=== PATIENT | male | born 1955 | race Caucasian/White ===

== ENCOUNTER → 2017-11-29 00:20 | Outpatient (CLI) | payer BC, SELFPAY ==
--- NOTE | 2017-11-29 08:17 | DI.REPORT_ITS ---
SYMPTOM/DIAGNOSIS: LUMP IN LEFT TESTICLE, N50.9 TESTICULAR ULTRASOUND: The testicles are normal in size and echogenicity and show normal blood flow. No mass is identified. There is small epididymal head cysts bilaterally. A few foci of shadowing are seen in the left testicle consistent with calcifications. There is also a question of scattered echogenic foci in the left epididymis also consistent with tiny calcifications. There is no evidence of hydrocele or varicocele. IMPRESSION: Calcifications in the left testicle and left epididymis. No evidence of a mass.
== END ==
PROVIDERS: PCP Family Medicine; Visit Provider Surgery
DX: N50.3 Cyst of epididymis (principal); N44.2 Benign cyst of testis; N50.89 Other specified disorders of the male genital organs
CPT/HCPCS: 76870

== ENCOUNTER 2019-12-12 07:37 | Outpatient (CLI) | payer BC, SELFPAY ==
[2019-12-14 09:39] LABS: SARS-CoV-2 RNA Undetected (Undetected); SARS-CoV-2 Specimen Source Nasopharynx
== END 2019-12-12 07:57 ==
PROVIDERS: PCP Family Medicine; Visit Provider Family Medicine
DX: Z11.59 Encounter for screening for other viral diseases (principal)
CPT/HCPCS: U0003

== ENCOUNTER 2021-02-17 13:14 | Outpatient (REF) | payer BC, SELFPAY ==
[2021-02-17 16:02] LABS: Bilirubin Negative (Negative); Blood Small (Negative); Clarity Clear (Clear); Glucose Negative (Negative); Ketones Negative (Negative); Leukocyte Esterase Negative (Negative); Nitrite Negative (Negative); Specific Gravity 1.015 (1.005-1.025); Urobilinogen 0.2 EU/dL (Up TO 0.2)
[2021-02-17 16:13] LABS: Bacteria Negative HPF (Negative); C & S Indicated? No; Crystals Negative HPF (Negative); Epithelial Cells Negative HPF (Negative); Mucus Negative (Negative); Other Cells Few Renal (Negative); RBC 20-50 HPF (0-2)
== END 2021-02-17 13:15 | disposition home or self-care (01) ==
LOC: LBN 13:14
PROVIDERS: PCP Family Medicine; Visit Provider Family Medicine
DX: D59.6 Hemoglobinuria due to hemolysis from other external causes (principal)
CPT/HCPCS: 81003; 81015

== ENCOUNTER 2021-03-03 13:19 | Outpatient (REF) | payer BC, SELFPAY ==
[2021-03-03 09:21] LABS: Bilirubin Negative (Negative); Blood Moderate (Negative); Clarity Clear (Clear); Glucose Negative (Negative); Ketones Negative (Negative); Leukocyte Esterase Negative (Negative); Nitrite Negative (Negative); Urobilinogen 0.2 EU/dL (Up TO 0.2)
[2021-03-03 09:27] LABS: Bacteria Negative HPF (Negative); C & S Indicated? No; Casts Negative LPF (Negative); Crystals Negative HPF (Negative); Epithelial Cells Rare HPF (Negative); Mucus Negative (Negative); RBC 20-50 HPF (0-2); WBC 0-2 HPF (0-5)
== END 2021-03-03 13:20 | disposition home or self-care (01) ==
LOC: LBN 13:19
PROVIDERS: PCP Family Medicine; Visit Provider Family Medicine
DX: D59.6 Hemoglobinuria due to hemolysis from other external causes (principal)
CPT/HCPCS: 81003; 81015

== ENCOUNTER 2021-03-12 17:17 | Outpatient (REF) | payer BC, SELFPAY ==
[2021-03-12 23:12] LABS: PSA, Screening 6.2 ng/mL (0.0-4.5)
== END 2021-03-12 17:18 | disposition home or self-care (01) ==
LOC: LBN 17:17
PROVIDERS: PCP Family Medicine; Visit Provider Nurse Practitioner Gerontology
DX: Z12.5 Encounter for screening for malignant neoplasm of prostate (principal)
CPT/HCPCS: 84153

== ENCOUNTER 2021-06-06 03:56 | Outpatient (CLI) | payer BC, SELFPAY ==
[2021-06-06 23:04] LABS: PSA, Diagnostic 5.7 ng/mL (0.0-4.5)
== END 2021-06-06 03:57 | disposition home or self-care (01) ==
LOC: LBO 03:56
PROVIDERS: PCP Family Medicine; Visit Provider Nurse Practitioner Gerontology
DX: R97.20 Elevated prostate specific antigen [PSA] (principal)
CPT/HCPCS: 36415; 84153

== ENCOUNTER 2021-12-10 15:14 | Outpatient (REF) | payer BC, SELFPAY ==
[2021-12-10 10:11] LABS: CREATININE 0.9 mg/dL (0.70-1.30)
== END 2021-12-10 15:15 | disposition home or self-care (01) ==
LOC: LBN 15:14
PROVIDERS: PCP Family Medicine; Visit Provider Nurse Practitioner Gerontology
DX: R31.9 Hematuria, unspecified (principal); R97.20 Elevated prostate specific antigen [PSA]
CPT/HCPCS: 82565

== ENCOUNTER 2021-12-24 04:26 | Outpatient (CLI) | payer BC, SELFPAY | END 2021-12-24 04:27 | disposition home or self-care (01) | LOC: LBO 04:26 | PROVIDERS: Nurse Practitioner Gerontology; PCP Family Medicine; Visit Provider Family Medicine | DX: R97.20 Elevated prostate specific antigen [PSA] (principal) | CPT/HCPCS: 36415; 84153 ==

== ENCOUNTER → 2022-01-08 03:04 | Outpatient (CLI) | payer BC, SELFPAY ==
[2022-01-08] MEDS: Omnipaque 350 MG/ML 500 ML BTL-Imaging package IJ (08:57)
--- NOTE | 2022-01-08 09:15 | DI.CT_ITS ---
Exam(s) CT ABDOMEN PELVIS WO/W EXAM: CT ABDOMEN PELVIS WO/W TECHNIQUE: Imaging Protocol: Axial computed tomography images with coronal and sagittal reformatted images were created and reviewed. Images were performed from the lung bases through the ischial tuberosities before IV contrast and fol lowing IV contrast using a 70 second delay, followed by 7 minutes delayed images. CONTRAST MATERIAL: Intravenous: Omnipaque 350 Contrast volume:100 cc Oral: no COMPARISON: No exams were available for comparison FINDINGS: ABDOMEN: Lung Bases: Normal where visualized. Liver: Normal density. Small cysts right lobe no measurable mass. Gallbladder and biliary tract: No radiodense calculus or dilation. Pancreas: Normal density, no abnormal calcifications or inflammatory process. Spleen: Normal. Kidneys: Normal size, contour and axis. No radiodense stones. Mild hydronephrosis.. Small right heladio al cyst. No suspicious masses seen. Adrenal glands: No masses seen. Lymph nodes: Within normal limits. Abdominal Aorta: Abdominal portion non-dilated. Minimal atherosclerotic changes. Soft tissues: PELVIS: Bladder: The bladder is abnormally distended, up to the level of the umbilicus.. There are multiple abnormal soft tissue density masses along the bladder wall, greater on the left side and inferiorly. The mass in the left side of the bladder measures 3 by 7 by roughly 7 cm. There is no gross evidenc e of invasion through the bladder wall. The masses are near the ureterovesical junctions bilaterall y, greater on the left side, causing mild bilateral hydronephrosis..Two calculi in the dependent port ion of the bladder measuring around 7 millimeters in size. Bowel: No obstruction or bowel wall thickening. Appendix normal. Peritoneal cavity: No ascites, collection or mesenteric inflammatory response. Soft tissues: Bones: Bilateral L5 spondylolysis. No significant spondylolisthesis. Mild degenerative disc changes greatest at L5-S1. Unremarkable for age.. Reproductive organs: Prostate is mildly enlarged. IMPRESSION: Multiple bladder masses, highly suspicious for transitional cell carcinoma. The mass is cause mild hy dronephrosis. No suspicious renal mass. No evidence of metastatic disease. RADIATION DOSE DELIVERED: 2,528.79mGy.cm Total DLP 2,528.79mGy.cm Total DLP 2,528.79mGy.cm Total DLP DATA REPOSITORY: All CT scans at this facility are submitted to the National Radiology Data Registry (NRDR) Dose Index Registry (DIR) with the [employer] (ACR). RADIATION OPTIMIZATION: All CT scans at this facility use at least one of these dose optimization te chniques: automated exposure control; mA and/or kV adjustment per patient size (includes targeted exa ms where dose is matched to clinical indication); or iterative reconstruction.
== END ==
PROVIDERS: PCP Family Medicine; Visit Provider Nurse Practitioner Gerontology
DX: R31.9 Hematuria, unspecified (principal); N32.9 Bladder disorder, unspecified
CPT/HCPCS: 74178

== ENCOUNTER 2022-01-08 11:08 | Inpatient (IN) | payer BC, SELFPAY ==
[2022-01-08] VITALS (16 sets, daily range): BP systolic 87–141; BP diastolic 51–88; PULSE 60–98; RESP 12–21; TEMP 35.7–36.6; TEMPC 36.6; O2SAT 92–100; BMI 26.5
--- NOTE | 2022-01-08 11:05 | HPE_ITS ---
Date of service: 01/08/22 Time of Service: 11:30 Assessment and Plan Assessment and plan (1) Bladder mass: Status: Acute Assessment and plan: We will plan a cystoscopy and TUR Bladder lesions. His ultimate treatment recommendations will depend on his surgical pathology. With the size of his bladder lesions, I would expect that he will need to stay overnight with continuous bladder irrigation. I would expect that he will go home with an indwelling catheter as his initial rescetion will involve the muscularis below his visible tumor. History of Present Illness History of Present Illness Chief Complaint: Bladder masses Narrative: This is a 66-year-old gentleman who is quite active running long distance races. He has seen gross hematuria following completion of these races. At first, the hematuria would bring clear within 24 hours. More recently, it is taking longer and longer for the hematuria to clear. Because of the hematuria, he was evaluated with a CT urogram. The urogram demonstrates multiple filling defects within the bladder. These defects are co nsistent with urothelial cell carcinoma of the bladder. He also has a finding of stones within the bladder. He presents for cystoscopy with transurethral resection of his bladder lesions. He has never been a smoker. 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 Father , stroke Stroke Sister No problems noted. Sister No problems noted. Sister No problems noted. Sister No problems noted. Brother , stomach cancer at age 52. Personal history of malignant neoplasm stomach Brother No problems noted. Brother No problems noted. Brother No problems noted. Brother No problems noted. Brother No problems noted. Brother No problems noted. Brother No problems noted. Social History Smoking/Tobacco Use Status: Never Smoking risk assessment performed?: Yes Alcohol Intake: former Year quit: 2006 Drug use: Never Substance use type: does not use Household members: spouse and children Housing: house Number of Children: 4 current occupation: self employed What type of physical activity do you participate in: weight lifting, running and additional Details: work Frequency: 3-4 times per week Seatbelt use: always Helmet use: Yes Meds Allergies and Home Medications Allergies Allergy/AdvReac Type Severity Reaction Status Date / Time No Known Allergies Allergy Verified 01/08/22 11:34 Home Medications Medication Instructions Recorded Confirmed Type multivitamin (Daily Multi-Vitamin 1 ea PO DAILY 08/24/12 01/08/22 History tablet) varicella-zoster glycoE vacc-AS01B 50 mcg IM ONCE #1 ea 02/04/18 02/10/21 Rx adj(PF) 50 mcg/0.5 mL IM susp, kit (Shingrix (PF)) sildenafil 100 mg tablet (Viagra) 100 mg PO DAILY PRN sexual 02/10/21 01/08/22 Rx activity #10 tab-caps magnesium 250 mg tablet 500 mg PO DAILY 01/08/22 01/08/22 History Exam Const General: cooperative Resp Effort & Inspection: normal respiratory effort Auscultation: clear to auscultation bilaterally Cardio Rate: regular rate Rhythm: regular rhythm GI Palpation: soft and no masses Neuro General: patient alert, patient awake and patient oriented x3
--- NOTE | 2022-01-08 11:34 | W.ANESPRE ---
General Info Date of Service Date Performed: 01/08/22 Height: 5 ft 10.5 in Weight: 85.1 kg Body Mass Index (BMI): 26.5 Surgical Procedure: Operation Date: 01/08/22 12:40 Proposed Procedure Side Surgeon p Cystoscopy/Transurethral Resection Bladder Tumor Ajit Delgado MD Meds Allergies and Home Medications Allergies Allergy/AdvReac Type Severity Reaction Status Date / Time No Known Allergies Allergy Verified 01/08/22 11:34 Home Medication Medication Instructions Recorded multivitamin (Daily Multi-Vitamin 1 ea PO DAILY 08/24/12 tablet) varicella-zoster glycoE vacc-AS01B 50 mcg IM ONCE #1 ea 02/04/18 adj(PF) 50 mcg/0.5 mL IM susp, kit (Shingrix (PF)) sildenafil 100 mg tablet (Viagra) 100 mg PO DAILY PRN sexual 02/10/21 activity #10 tab-caps magnesium 250 mg tablet 500 mg PO DAILY 01/08/22 Current Visit Medications: Current Medications Generic Name Dose Route Start Last Admin Trade Name Freq PRN Reason Stop Dose Admin Sodium Chloride 500 mls @ 0 mls/hr 01/08/22 11:22 Saline 500ml Bag IV PRN PRN As Directed Ringer's Solution 1,000 mls @ 80 mls/hr 01/08/22 11:30 IV INFUSION ZEYNEP Cefazolin Sodium/Dextrose 2 gm in 50 mls @ 100 mls/hr 01/08/22 11:30 Ancef Duplex IVPB PREOP ZEYNEP IV Miscellaneous Supplies 1 each 01/08/22 11:30 Iv Access IV DIRECTED ZEYNEP Sodium Chloride 0 ml 01/08/22 11:22 Normal Saline Flush 10 Ml Syr IVP PRN PRN PFSH Active Problems Active Problems: Problem Status Onset Code Bladder mass N32.89 Elevated PSA R97.20 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.6 Impotence, organic 05/31/12 N52.9 Hyperlipidemia 02/10/98 E78.5 Gastroesophageal reflux disease 09/04/12 K21.9 Benign neoplasm of colon 09/14/12 D12.6 Ascending aortic aneurysm 05/13/15 I71.2 Medical History Active Problem List 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, 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) Ascending aortic aneurysm (Chronic 05/13/15) Medical History Male erectile disorder Surgical History Surgical History Colonoscopy - MAC (~2007) repeated 09/14/12 tubular adenoma Colonoscopy - MAC (11/09/17) repeated 09/14/12 tubular adenoma EGD - MAC (09/14/12) Tobacco Smoking/Tobacco Use Status: Never Alcohol Alcohol Intake: former Year quit: 2006 Substance Use Substance use: Never Substance use type: does not use Vital Signs and Lab Results Vital Signs Most Recent Vital Signs in EMR: Temp Pulse Resp BP Pulse Ox 36.6 C 60 16 141/88 H 98 01/08/22 11:52 01/08/22 11:52 01/08/22 11:52 01/08/22 11:52 01/08/22 11:52 Manually Entered Vital Signs Most Recent Manually Entered Vital Signs: Adult Blood Pressure: 141/88 Heart Rate: 60 Respirations: 16 Oxygen Saturation (%): 98 Temperature (C): 36.6 C Lab Results Blood Type / Crossmatch: No Data to Display Complete Blood Count: No Data to Display Complete Metabolic Panel: Creatinine 0.9 mg/dL (0.70-1.30) 12/10/21 09:10 Estimated GFR/1.73 m2 >= 60.00 (mL/min/1.73m2) 12/10/21 09:10 Liver Function Panel: No Data to Display Coagulation Panel: No Data to Display Cardiac Panel: No Data to Display Arterial Blood Gas: No Data to Display Venous Blood Gas: No Data to Display Pancreas Panel: No Data to Display Thyroid Panel: No Data to Display Infectious Disease: Coronavirus (COVID-19)(PCR) Pending 01/08/22 11:40 Coronavirus 2019 Source Nasal/Nares 01/08/22 11:40 Blood Cultures: No Data to Display Toxicology Panel: No Data to Display Anesthesia Assessment and Plan Anesthesia History Personal History: No History of Anesthesia Complications Family History: No Family History of Anesthesia Complications Exercise Tolerance Exercise Tolerance: Metabolic Equivalents>4 Pertinent Negatives Pertinent Negatives: No Symptoms of GERD, No Major Cardiovascular Symptoms or Complaints and No Major Pulmonary Symptoms or Complaints Cardiac & Pulmonary Exam Cardiac Exam: Normal S1/S2 Heart Sounds Pulmonary Exam: Clear Bilateral Breath Sounds Cardiac and Pulmonary Comment:: Has thoracic aneurysm, per pt last fall measured 4.3cm, on yearly exam schedule Implantable Cardiac Device Does patient have a Pacemaker or an ICD?: No Airway Exam Known Difficult Airway: No Mallampati Class: 2 Mouth Opening: Normal (> 3cm) Thyromental Distance: Greater than 3 cm Neck Range of Motion: Full ROM Neck Circumference: Normal Teeth Condition: Normal Dentition, Removable Dentures/Plates Upper, Removable Dentures/Plates Lower and Edentulous ASA Classification ASA Score: ASA 2 Emergency Case?: No NPO Status NPO Status: NPO Clears >2 hours, Solids >8 hours and NPO Clear Liquids>2 hours Anesthesia Plan Resuscitation Status: Full Code Anesthesia Technique: General Anesthesia Airway Planned: Endotracheal Tube Monitors Used: Standard Monitors
[2022-01-08 11:47] LABS: Source Nasal/Nares
[2022-01-08] MEDS: Lactated Ringers 1,000 ML 80 ML IV ×2 (12:14→14:51)
[2022-01-08] MEDS: ceFAZolin 2 GM/50 ML BAG IVPB (13:04)
[2022-01-08] MEDS: Lidocaine 2% Jelly 6 ML SYR (13:09)
--- NOTE | 2022-01-08 14:34 | BLADDER_PTH ---
PATIENT: Raphael Elena LOC: U#:[id number] AGE/SX: 66/M ROOM: [facility] [place] RE01/08/[address]: Ajit Delgado MD : 1955 BED: A DIS: 01/09/2022 SPEC #: [id number] RECD: 01/08/22 17:36 STATUS: SOUSánchez REQ #: [id number] SERGIO: 01/08/22 14:[address]: Ajit Delgado DEPT: Surgical Specimen RECD BY: Ni Stout ENTERED: 01/08/22 17:36 SP TYPE: Bladder OTHR DR: David Venegas DO Tissues: 1 - BLADDER CURRETTINGS Procedures: GROSS AND MICRO LEVEL 5 Comments: [id number]
[2022-01-08 14:44] LABS: COVID-19 PCR Negative (Negative)
--- NOTE | 2022-01-08 14:56 | ROE_ITS ---
Date of service: 01/08/22 Time of Service: 14:56 Operative Note Operative Note PRE-OP DIAGNOSIS: Bladder masses PROCEDURE: cystoscopy with TUR Bladder Tumor (>5 cm) SURGEON: Ajit Delgado ANESTHESIA TYPE: General LMA/ETT Refer to Anesthesia Record ESTIMATED BLOOD LOSS: 500 PATHOLOGY: other (bladder tumor) COMPLICATIONS: None Patient was transported to: PACU Patient's condition: stable Implants: 24 bulgarian Coude tipped irrigating catheter with 30 cc sterile water in balloon Indications: This is a 66-year-old gentleman who comes in with a history of gross hematuria. His symptoms tend to occur after exercise. He was evaluated with a CT urogram and multiple filling defects were found within the bladder. He presents for cystoscopy with transurethral resection of these lesions. Findings: Multiple large papillary lesions within the bladder. The largest lesion was on the patient's left side and extending from the dome down toward the trigone Procedure Description: Silas was brought to the operating room on 01/08/2022. He was given a dose of preoperative antibiotics. After successful induction of general anesthesia, he was placed in the dorsal lithotomy position. His genitalia and perineum were prepped and draped sterilely. 2% Xylocaine jelly was instilled into the urethra to act as a local anesthetic. A 24 [place] resectoscope sheath was passed through the urethra into the bladder. The urethra was inspected using a visual obturator and 30 degree lens. The pendulous, bulbar and membranous urethra appeared normal with no strictures. The prostatic urethra showed some lateral lobe enlargement but no significant median lobe. The bladder neck was then entered and the bladder mucosa was inspected. There was a small papillary lesion measuring less than 2 cm on the right lateral bladder wall. On the left side, there was a greater than 5 cm lesion that extended from the trigone up to the dome of the bladder. 2 additional smaller papillary lesions were seen on the right side of the dome. The right ureteral orifice was visualized and appeared normal. Initially, the left orifice could not be seen. I then utilized an [employer] resectoscope and bipolar cautery to perform transurethral resection of the visible tumor. All resected tissue was evacuated and sent to pathology for permanent section. Once the resection was completed, I was able to visualize the left ureteral orifice and no blood was seen coming from that side. The resection sites were all cauterized with a ball electrode using bipolar cautery. The bladder was then filled with irrigant and the resectoscope was removed. A 24 [place] hematuria catheter was passed through the urethra into the bladder. The catheter balloon was inflated with 30 cc of sterile water. Continuous bladder irrigation with saline was begun. Hand irrigation of the catheter revealed no residual fragments or blood clots. At the completion of the resection, a bimanual exam revealed no fixation of the bladder to the pelvic sidewall. The patient tolerated the procedure well with no complications.
--- NOTE | 2022-01-08 16:36 | W.ANESPOSTOP ---
Postoperative Evaluation Date, Time and Location Date Performed: 01/08/22 Time Performed: 16:36 Patient Location: Day Surgery Unit Vital Signs Most Recent Imported Vital Signs: Most Recent Vital Signs Temp Pulse Resp BP Pulse Ox 36.1 C L 68 16 91/56 L 99 01/08/22 16:00 01/08/22 16:00 01/08/22 16:00 01/08/22 16:00 01/08/22 16:00 Pain Score Most Recent Pain Score: Most Recent Pain Score Pain Level 0 01/08/22 16:00 Assessment Mental Status: Awake (Alert & Oriented to Patient Baseline) Airway and Respiratory Function: Patent airway with normal (patient baseline) respiratory exam Cardiovascular Function: Hemodynamically Stable Hydration Status: Adequately Hydrated Nausea & Vomiting: No Nausea or Vomiting Pain: Pain is tolerable per patient Peripheral Nerve Block: Patient did not receive a nerve block
--- NOTE | 2022-01-08 16:45 | RT.EKG_ITS ---
APPROVED REPORT Exam: Resting ECG Reason for Exam: near syncope Patient Location: I HR:78 bpm ECG Measurements Heart Rate 78 AXIS MA 171 P 55 QRSd 103 QRS -1 QT 366 T 45 QTc 417 Conclusion Sinus rhythm...normal P axis, V-rate 50- 99
--- NOTE | 2022-01-08 17:00 | MCONE_ITS ---
Date of service: 01/08/22 Time of Service: 17:01 Assessment and Plan Assessment and plan (1) Near syncope: Status: Acute Assessment and plan: In setting of hypotension, post-op pain, hematuria. Checking CBC, BMP, magnesium, troponin, lactate, EKG. Place on telemetry. Bolus 1 L of LR and continue MIVF. (2) Hypotension: Status: Acute Assessment and plan: As above (3) Bladder mass: Status: Acute Assessment and plan: s/p TURBT Defer to urology (4) Ascending aortic aneurysm: Status: Chronic Assessment and plan: The patient is not having symptoms of dissection. F/u as outpatient. Total Critical Care Time 35 minutes. History of Present Illness History of Present Illness Chief Complaint: near syncopal event Narrative: Mr Elena is a 66 year old male with PMHx of bladder mass s/p TURBT today, as well as h/o AAA, GERD, ED, who had an unresponsive or a less responsive episode accompanied by shaking when sitting up at the side of the bed. Rapid response was called. By the time I arrived at the bedside, the patient is laying at about a 30 degree angle and responding to questions. He denies pain, including chest discomfort and does not feel short of breath. His SBP is in the 80s. He is on a CBI with blood in the catheter which is draining well. 1 L of LR was ordered in addition to bloodwork. Dr Delgado came to interrogate the catheter to ensure that it has not clotted off. 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 Father , stroke Stroke Sister No problems noted. Sister No problems noted. Sister No problems noted. Sister No problems noted. Brother , stomach cancer at age 52. Personal history of malignant neoplasm stomach Brother No problems noted. Brother No problems noted. Brother No problems noted. Brother No problems noted. Brother No problems noted. Brother No problems noted. Brother No problems noted. Social History Smoking/Tobacco Use Status: Never Smoking risk assessment performed?: Yes Alcohol Intake: former Year quit: 2006 Drug use: Never Substance use type: does not use Household members: spouse and children Housing: house Number of Children: 4 current occupation: self employed What type of physical activity do you participate in: weight lifting, running and additional Details: work Frequency: 3-4 times per week Seatbelt use: always Helmet use: Yes Exam Narrative Exam Narrative: General: Pleasant tall very pale-appearing male who is responding to questions slowly but appropriately Neurological: A&Ox3, slow to respond, but responding, no focal deficits; no shaking observed Psychiatric: difficulty with a full assessment due to mental status Skin: Pale, intact HEENT: Atraumatic, normocephalic, EOMI, dry MM, pale mucous membranes, no sub mandibular or cervical lymphadenopathy, no goiter or JVD Cardiovascular: RRR, no m/r/g Lungs: CTAB Gastrointestinal: soft, tender in suprapubic area, nondistended Genitourinary: has a three way catheter with CBI; peach colored urine Extremities: no edema BLEs Results Last Vital Signs Temp 35.7 C L 01/08/22 16:36 Pulse 70 01/08/22 16:36 Resp 15 01/08/22 16:36 BP 94/61 L 01/08/22 16:36 Pulse Ox 99 01/08/22 16:36 Labs Labs: Laboratory Results - last 24 hr 01/08/22 11:40 COVID-19 Source Nasal/Nares SARS-CoV-2 (PCR) Negative Imaging Additional studies: EKG ordered, pending
[2022-01-08 17:35] LABS: Abs Immature Grans 0.11 10^3/uL (0.0-0.06); Absolute Monocyte Count 0.31 10^3/uL (0.1-0.8); Basophils % 0.8; Eosinophils % 1.3; HCT 35.3 % (40.0-50.0); HGB 11.3 g/dL (13.5-17.5); Immature Grans % 0.8; Lymphocytes % 19.6; MCH 27.4 pg (27.0-33.0); MCV 86 fL (80-95); MPV 10.5 fL (8.0-11.0); Monocytes % 2.2; Neutrophils % 75.3; Platelet Count 254 10^3/uL (130-400); RBC 4.13 10^6/uL (4.36-5.78); RDW 14.3 % (11.8-14.1); RDW-SD 44.3 fL
[2022-01-08 17:36] LABS: Absolute Basophil Count 0.11 10^3/uL (0.0-0.2); Absolute Eosinophil Count 0.19 10^3/uL (0.0-0.7); Absolute Neutrophil Count 10.77 10^3/uL (1.2-6.7); Lactate 4.1 mmol/L (0.6-1.4)
[2022-01-08 17:53] LABS: Anion Gap 7.5 mmol/L (3-11); BUN 12 mg/dL (7-18); CO2 26.5 mmol/L (21.0-32.0); Calcium 8.4 mg/dL (8.5-10.1); Chloride 107 mmol/L (98-107); Estimated GFR 84.05 (mL/min/1.73m2); Glucose 143 mg/dL (74-106); Magnesium 2.1 mg/dL (1.8-2.4); Potassium 4.4 mmol/L (3.5-5.1); Sodium 141 mmol/L (136-145); Troponin I < 50 ng/L (<or=60)
[2022-01-08] MEDS: Lactated Ringers 1,000 ML 1000 ML IV ×2 (18:42→21:19)
[2022-01-08] MEDS: VANCOMYCIN/WATER (PEG) 1.75 GM/350 ML BAG IVPB (18:43)
[2022-01-08 19:14] LABS: Procalcitonin < 0.1 ng/mL
--- NOTE | 2022-01-08 19:33 | NUR.NOTE ---
1621: Pt arrived to room 207. Hand off recieved from Casandra, PACU/RN. Pt arrived pale, lethargic with cool extremities. Alert and slow to respond, but appropriate with his answers to my questioning. BP 94/61, HR 70, T 35.7, 02 sats 99% RA Three way Landry irrigation in place with dark red urine in Landry bag upon arrival to room.
[2022-01-08] MEDS: traMADol 50 MG TAB PO (20:20)
[2022-01-08] MEDS: Docusate Sodium 100 MG CAP PO (20:21)
[2022-01-08] MEDS: Ketorolac 15 MG/ML VIAL IVP (20:21)
[2022-01-08] MEDS: ceFAZolin 1 GM/50 ML BAG IVPB (21:09)
[2022-01-08] MEDS: Lactated Ringers 1,000 ML 150 ML IV (21:19)
[2022-01-08 21:35] LABS: Bilirubin Small (Negative); Blood Large (Negative); Clarity Turbid (Clear); Glucose Negative (Negative); Ketones Negative (Negative); Leukocyte Esterase Negative (Negative); Nitrite Positive (Negative); Specific Gravity 1.025 (1.005-1.025); Urobilinogen 0.2 EU/dL (Up TO 0.2); pH 5.5 (5-8)
[2022-01-08 21:36] LABS: C & S Indicated? C&S Done As Ordered
[2022-01-08 21:41] LABS: RBC >50 HPF (0-2)
[2022-01-08 23:26] LABS: Lactate 2.4 mmol/L (0.6-1.4)
[2022-01-09] VITALS (15 sets, daily range): BP systolic 103–129; BP diastolic 57–76; PULSE 72–220; RESP 16; TEMP 36.5–37.5; O2SAT 92–98
[2022-01-09] MEDS: Lactated Ringers 1,000 ML 150 ML IV (03:30)
[2022-01-09] MEDS: ceFAZolin 1 GM/50 ML BAG IVPB (03:43)
[2022-01-09] MEDS: VANCOMYCIN/WATER (PEG) 1.25 GM/250 ML BAG IVPB ×2 (04:28→13:21)
[2022-01-09 06:41] LABS: HCT 22.4 % (40.0-50.0); HGB 7.5 g/dL (13.5-17.5)
[2022-01-09 06:59] LABS: Anion Gap 6.3 mmol/L (3-11); BUN 14 mg/dL (7-18); CO2 25.7 mmol/L (21.0-32.0); CREATININE 1.1 mg/dL (0.70-1.30); Calcium 7.7 mg/dL (8.5-10.1); Chloride 107 mmol/L (98-107); Estimated GFR 74.96 (mL/min/1.73m2); Glucose 111 mg/dL (74-106); Potassium 4.4 mmol/L (3.5-5.1); Sodium 139 mmol/L (136-145)
[2022-01-09 07:02] LABS: Lactate 1.7 mmol/L (0.6-1.4)
--- NOTE | 2022-01-09 07:29 | W.PM.PROGNOT ---
Date of Service Date of service: 01/09/22 Time of Service: 07:29 Assessment and Plan Assessment and plan (1) Bladder mass: Status: Acute Assessment and plan: We would continue his bladder irrigation and restart it if the output becomes opaque. I suspect yesterday's hypotension event was related to hypovolemia/acute blood loss from his surgical procedure. His bladder tumor volume was quite large. I was surprised that his immediate postop hemoglobin was over 10, but that may reflect his dehydration status more than his anything We will see what today's lab work looks like, but he might benefit from a transfusion. Now that we are discontinuing his bladder irrigation, we will get him up and walking to see if he has any orthostatic hypotension symptoms. If we are able to keep his bladder irrigation off, he may be able to go home later today. Subjective Subjective Interval history since last seen: The patient developed hypotension after he arrived up to the [facility] unit. We suspected hypovolemia and vasovagal reaction. He has responded to increased fluid replacement and feels much better this morning. He denies any lightheadedness or shortness of breath. He has no chest pain. Exam Narrative Exam Narrative: He is awake and talkative His vital signs are documented elsewhere His bladder output is clear with the bladder irrigation going at a very slow rate He is awake and alert His labs are still pending Objective Last Vital Signs Temp 36.7 C 01/09/22 04:43 Pulse 72 01/09/22 04:43 Resp 16 01/09/22 04:43 BP 103/57 L 01/09/22 04:43 Pulse Ox 92 01/09/22 04:43 Laboratory Results - last 24 hr 01/08/22 01/08/22 01/08/22 11:40 17:20 17:20 WBC RBC Hgb Hct MCV MCH MCHC RDW Plt Count MPV Immature Gran % Neutrophils % Lymphocytes % Monocytes % Eosinophils % Basophils % Nucleated RBC % Absolute Neutrophils Absolute Lymphocytes Absolute Monocytes Absolute Eosinophils Absolute Basophils VBG Lactate 4.1 H* Sodium 141 Potassium 4.4 Chloride 107 Carbon Dioxide 26.5 Anion Gap 7.5 BUN 12 Creatinine 1.0 Est GFR (CKD-EPI 2020) 84.05 Glucose 143 H Calcium 8.4 L Magnesium 2.1 Troponin I < 50 Procalcitonin Urine Color Urine Clarity Urine pH Ur Specific [place] Urine Protein Urine Ketones Urine Blood Urine Nitrite Urine Bilirubin Urine Urobilinogen Ur Leukocyte Esterase Urine RBC Urine WBC Ur Epithelial Cells Urine Crystals Urine Bacteria Urine Mucus Ur Culture Indicated? Urine Glucose COVID-19 Source Nasal/Nares SARS-CoV-2 (PCR) Negative 01/08/22 01/08/22 01/08/22 17:20 17:20 20:30 WBC 14.30 H RBC 4.13 L Hgb 11.3 L Hct 35.3 L MCV 86 MCH 27.4 MCHC 32.0 RDW 14.3 H Plt Count 254 MPV 10.5 Immature Gran % 0.8 Neutrophils % 75.3 Lymphocytes % 19.6 Monocytes % 2.2 Eosinophils % 1.3 Basophils % 0.8 Nucleated RBC % 0.0 Absolute Neutrophils 10.77 H Absolute Lymphocytes 2.80 Absolute Monocytes 0.31 Absolute Eosinophils 0.19 Absolute Basophils 0.11 VBG Lactate 4.0 H* Sodium Potassium Chloride Carbon Dioxide Anion Gap BUN Creatinine Est GFR (CKD-EPI 2020) Glucose Calcium Magnesium Troponin I Procalcitonin < 0.1 Urine Color Urine Clarity Urine pH Ur Specific [place] Urine Protein Urine Ketones Urine Blood Urine Nitrite Urine Bilirubin Urine Urobilinogen Ur Leukocyte Esterase Urine RBC Urine WBC Ur Epithelial Cells Urine Crystals Urine Bacteria Urine Mucus Ur Culture Indicated? Urine Glucose COVID-19 Source SARS-CoV-2 (PCR) 01/08/22 01/08/22 01/09/22 21:00 23:22 05:52 WBC RBC Hgb Hct MCV MCH MCHC RDW Plt Count MPV Immature Gran % Neutrophils % Lymphocytes % Monocytes % Eosinophils % Basophils % Nucleated RBC % Absolute Neutrophils Absolute Lymphocytes Absolute Monocytes Absolute Eosinophils Absolute Basophils VBG Lactate 2.4 H* Sodium 139 Potassium 4.4 Chloride 107 Carbon Dioxide 25.7 Anion Gap 6.3 BUN 14 Creatinine 1.1 Est GFR (CKD-EPI 2020) 74.96 Glucose 111 H Calcium 7.7 L Magnesium Troponin I Procalcitonin Urine Color Brown Urine Clarity Turbid Urine pH 5.5 Ur Specific [place] 1.025 Urine Protein >=300 H Urine Ketones Negative Urine Blood Large H Urine Nitrite Positive H Urine Bilirubin Small H Urine Urobilinogen 0.2 Ur Leukocyte Esterase Negative Urine RBC >50 H Urine WBC Not Applicable Ur Epithelial Cells Not Applicable Urine Crystals Not Applicable Urine Bacteria Not Applicable Urine Mucus Not Applicable Ur Culture Indicated? C&S Done As Ordered Urine Glucose Negative COVID-19 Source SARS-CoV-2 (PCR) 01/09/22 01/09/22 05:52 06:56 WBC RBC Hgb 7.5 L D Hct 22.4 L MCV MCH MCHC RDW Plt Count MPV Immature Gran % Neutrophils % Lymphocytes % Monocytes % Eosinophils % Basophils % Nucleated RBC % Absolute Neutrophils Absolute Lymphocytes Absolute Monocytes Absolute Eosinophils Absolute Basophils VBG Lactate 1.7 H Sodium Potassium Chloride Carbon Dioxide Anion Gap BUN Creatinine Est GFR (CKD-EPI 2020) Glucose Calcium Magnesium Troponin I Procalcitonin Urine Color Urine Clarity Urine pH Ur Specific [place] Urine Protein Urine Ketones Urine Blood Urine Nitrite Urine Bilirubin Urine Urobilinogen Ur Leukocyte Esterase Urine RBC Urine WBC Ur Epithelial Cells Urine Crystals Urine Bacteria Urine Mucus Ur Culture Indicated? Urine Glucose COVID-19 Source SARS-CoV-2 (PCR)
[2022-01-09] MEDS: Docusate Sodium 100 MG CAP PO (08:41)
--- NOTE | 2022-01-09 09:14 | PDOC.CMIN ---
- If Service Date Differs Date of service: 01/09/22 Time of Service: 09:14 Care Management Initial Assess REASON FOR HOSPITALIZATION:: Bladder mass PAST MEDICAL HISTORY/PAST SURGICAL HISTORY:: All Active Problems . Bladder mass (Acute). Elevated PSA (Acute). 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 Viagra effective. Ascending aortic aneurysm (Chronic 05/13/15). Active Problem List . 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 Ascending aortic aneurysm (Chronic 05/13/15). Medical History . Male erectile disorder. Surgical History . Colonoscopy - MAC (~2007). repeated 09/14/12 tubular adenoma. Colonoscopy - MAC (11/09/17). repeated 09/14/12 tubular adenoma. EGD - MAC (09/14/12) PREVIOUS FUNCTIONAL STATUS/SOCIAL/FAMILY SUPPORTS:: Lowell lives at [facility] in the summer and in [place] in the winter with his fiancee Sharona. He has 4 children and Sharona has one. Some of their children live closeby and some are out of state. 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 He is independent at [facility] and does not receive any community services. CURRENT FUNCTIONAL STATUS:: Lowell was sitting up in bed visiting with Sharona when CM met with him. They were both open to conversation and pleasant in interaction. Lowell talked about his love of running and Sharona shared that he runs at least 3 half marathons each year. He verbalized that he is disappointed that he will not be able to run for at least 2 weeks following this surgery. ADVANCE DIRECTIVES:: none on file Has patient been provided with info about the portal/API?: Yes Did the patient sign up for the portal?: Yes (previously) INSURANCE COVERAGE / FINANCIAL ISSUES:: TROY VENEGAS CURRENT HOME/COMMUNITY SERVICES/EQUIPMENT:: none PRIMARY CARE PHYSICIAN:: David Venegas POTENTIAL DISCHARGE NEEDS:: follow up with [facility] and PCP and plan of care PATIENT/FAMILY EDUCATION NEEDS:: Review of discharge instructions, limitations, follow up plan, activity, medications, Ask Me Three TRANSPORTATION:: via private vehicle with family PLAN:: Lowell will likely be discharged home with no new services. He will follow up with his community providers and plan of care and transport with family. CM will offer support to Lowell and his discharge planning needs.
--- NOTE | 2022-01-09 09:45 | RT.EKG_ITS ---
APPROVED REPORT Exam: Resting ECG Reason for Exam: Sinus tach Patient Location: I HR:84 bpm ECG Measurements Heart Rate 84 AXIS IL 176 P 34 QRSd 100 QRS -5 QT 359 T 43 QTc 425 Conclusion Sinus rhythm...normal P axis, V-rate 50- 99 Normal Electrocardiogram
[2022-01-09] MEDS: Normal Saline Flush 10 ML SYR IVP ×2 (12:23→14:37)
[2022-01-09] MEDS: cefTRIAXone 2 GM/50 ML BAG IVPB (12:23)
--- NOTE | 2022-01-09 16:13 | W.PM.DS.N ---
Date of service: 01/09/22 Time of Service: 16:13 DS: Diagnosis Discharge Diagnosis (1) Bladder mass: Status: Acute Discharge Plan Disposition Patient Disposition: HOME Condition: Stable Discharge Details Reason For Visit: Bladder Mass Admit Date/Time: 01/08/22 11:08 Admit Provider: Ajit Delgado Attending Provider: Ajit Delgado Primary Care Provider: David Venegas [facility] Course Hospital Course: The patient was admitted and taken to the operating room on 01/08/2022 where he underwent cystoscopy. We identified a large volume of bladder tumor and he underwent transurethral resection of the visible tumor. Following the procedure, continuous bladder irrigation was maintained. The patient developed hypotension which was felt to be related to dehydration and acute blood loss. His hemoglobin at that point was 11 so he was not transfused right then. He was given IV fluid overnight and his blood pressure improved. His hemoglobin on postoperative day #1 had dropped to 7.5. He was asymptomatic while he was in bed, but when we got him up to ambulate, he became tachycardic but not hypotensive. He responded very nicely to 1 unit of packed red blood cells and is no longer symptomatic. He has not had any additional blood in the urine without bladder irrigation. He is asking to be discharged to home this evening. At the time of discharge, he is able to tolerate oral nutrition and medications. He is not having any pain. The urine in his catheter drainage tubing is transparent. Home Meds and New Rx's Prescriptions: New sulfamethoxazole-trimethoprim [Bactrim DS] 800-160 mg tablet 1 tab PO DAILY Qty: 7 0RF No Action sildenafil [Viagra] 100 mg tablet 100 mg PO DAILY PRN (Reason: sexual activity) Qty: 10 12RF Rx Instructions: as directed for ED Shingrix (PF) 50 mcg/0.5 mL suspension for reconstitution 50 mcg IM ONCE Qty: 1 1RF multivitamin [Daily Multi-Vitamin] 1 EACH tablet 1 ea PO DAILY magnesium 250 mg Tablet 500 mg PO DAILY Discharge Instructions Instructions: Transurethral Prostatectomy (DC) Additional Instructions: Plug to catheter irrigation port. Catheter to leg bag or large drainage bag depending on the patient's activity No lifting over 20 pounds until follow-up visit Please call my office on Wednesday morning to make arrangements to have the Landry catheter removed later in the week. You will also need a follow-up visit in 10 to 14 days to review the surgical pathology. Start over the counter stool softener to prevent constipation Stand Alone Forms: Nursing Discharge Form Referrals: Ajit Delgado MD [ [facility] STAFF PHYSICIAN] - (Please call Wednesday to make follow up appointments) Activity:: No lifting over 20 pounds Equipment/Supplies:: Landry to leg bag Diet:: As Tolerated Discharge Orders Discharge Orders: Discharge Order (Routine); Ordered 01/09/22 Ordered By: Ajit Delgado DS: Summary Time Spent with Patient providing and/or coordinating discharge services: Less than 30 minutes Status at Discharge Functional status at discharge: independent ambulation Overall status at discharge: patient is progressing back to baseline Mental Status: mental status grossly normal Speech and Movement: speech and movement normal Mood: congruent mood Affect: normal affect Exam Narrative Exam Narrative: At the time of discharge, he is awake and alert. He looks comfortable. His vital signs are documented elsewhere His chest wall motion is normal. He is not short of breath at rest. His abdomen is soft with no guarding or rebound tenderness His Landry catheter is draining transparent urine with no bladder irrigation He is awake and alert Psych Mental Status: mental status grossly normal Speech and Movement: speech and movement normal Mood: congruent mood Affect: normal affect DS: Data Vitals/I&O Vitals and I&O: Vital Signs Temperature 36.9 C 01/09/22 15:51 Temperature Source Tympanic 01/09/22 15:51 Pulse 83 01/09/22 15:51 Pulse Rhythm Regular 01/09/22 08:50 Respiratory Rate 16 01/09/22 15:51 Respiratory Effort Non-Labored 01/09/22 08:50 Respiratory Depth Normal 01/09/22 08:50 Respiratory Pattern Normal 01/09/22 08:50 Blood Pressure 117/65 01/09/22 15:51 Pulse Oximetry 97 01/09/22 15:51 Respiratory End-tidal CO2 30 01/08/22 16:00 Oxygen Delivery Method Room Air 01/09/22 15:51 Oxygen Flow Rate 0 01/09/22 15:51 Pain Level 0 01/09/22 09:47 Comment 01/09/22 10:04 Intake & Output 01/08/22 01/09/22 01/09/22 23:59 11:59 23:59 Intake Total 3202.667 / 3202.667 1347.5 / 3137.5 1790 / 3137.5 Output Total 500 / 500 1000 / 2650 1650 / 2650 Balance 2702.667 / 2702.667 347.5 / 487.5 140 / 487.5 Weight 85.1 kg Intake: IV 3202.667 / 3202.667 1227.5 / 2527.5 1300 / 2527.5 Oral 120 / 360 240 / 360 Blood Product 250 / 250 Rbc Leuko Reduced Unit 250 / 250 [id number] Output: Urine 1000 / 2650 1650 / 2650 Estimated Blood Loss 500 / 500 Other: Urine Color [place] Urine Appearance Hematuria Clear Clear Comment three way irrigation nursing assessment on worklist Emesis Description None Voiding Methods Indwelling Catheter Data Completed and Pending Labs on day of discharge: Labs from last 24 hours 01/09/22 01/09/22 01/09/22 10:40 06:56 05:52 WBC RBC Hgb 7.5 L D Hct 22.4 L MCV MCH MCHC RDW Plt Count MPV Immature Gran % Neutrophils % Lymphocytes % Monocytes % Eosinophils % Basophils % Nucleated RBC % Absolute Neutrophils Absolute Lymphocytes Absolute Monocytes Absolute Eosinophils Absolute Basophils VBG Lactate 1.7 H Sodium Potassium Chloride Carbon Dioxide Anion Gap BUN Creatinine Est GFR (CKD-EPI 2020) Glucose Calcium Magnesium Troponin I Procalcitonin Urine Color Urine Clarity Urine pH Ur Specific [place] Urine Protein Urine Ketones Urine Blood Urine Nitrite Urine Bilirubin Urine Urobilinogen Ur Leukocyte Esterase Urine RBC Urine WBC Ur Epithelial Cells Urine Crystals Urine Bacteria Urine Mucus Ur Culture Indicated? Urine Glucose Patient ABO/Rh B Positive Antibody Screen NEGATIVE Crossmatch See Detail 01/09/22 01/08/22 01/08/22 05:52 23:22 21:00 WBC RBC Hgb Hct MCV MCH MCHC RDW Plt Count MPV Immature Gran % Neutrophils % Lymphocytes % Monocytes % Eosinophils % Basophils % Nucleated RBC % Absolute Neutrophils Absolute Lymphocytes Absolute Monocytes Absolute Eosinophils Absolute Basophils VBG Lactate 2.4 H* Sodium 139 Potassium 4.4 Chloride 107 Carbon Dioxide 25.7 Anion Gap 6.3 BUN 14 Creatinine 1.1 Est GFR (CKD-EPI 2020) 74.96 Glucose 111 H Calcium 7.7 L Magnesium Troponin I Procalcitonin Urine Color Brown Urine Clarity Turbid Urine pH 5.5 Ur Specific [place] 1.025 Urine Protein >=300 H Urine Ketones Negative Urine Blood Large H Urine Nitrite Positive H Urine Bilirubin Small H Urine Urobilinogen 0.2 Ur Leukocyte Esterase Negative Urine RBC >50 H Urine WBC Not Applicable Ur Epithelial Cells Not Applicable Urine Crystals Not Applicable Urine Bacteria Not Applicable Urine Mucus Not Applicable Ur Culture Indicated? C&S Done As Ordered Urine Glucose Negative Patient ABO/Rh Antibody Screen Crossmatch 01/08/22 01/08/22 01/08/22 20:30 17:20 17:20 WBC 14.30 H RBC 4.13 L Hgb 11.3 L Hct 35.3 L MCV 86 MCH 27.4 MCHC 32.0 RDW 14.3 H Plt Count 254 MPV 10.5 Immature Gran % 0.8 Neutrophils % 75.3 Lymphocytes % 19.6 Monocytes % 2.2 Eosinophils % 1.3 Basophils % 0.8 Nucleated RBC % 0.0 Absolute Neutrophils 10.77 H Absolute Lymphocytes 2.80 Absolute Monocytes 0.31 Absolute Eosinophils 0.19 Absolute Basophils 0.11 VBG Lactate 4.0 H* Sodium Potassium Chloride Carbon Dioxide Anion Gap BUN Creatinine Est GFR (CKD-EPI 2020) Glucose Calcium Magnesium Troponin I Procalcitonin < 0.1 Urine Color Urine Clarity Urine pH Ur Specific [place]oe Urine Protein Urine Ketones Urine Blood Urine Nitrite Urine Bilirubin Urine Urobilinogen Ur Leukocyte Esterase Urine RBC Urine WBC Ur Epithelial Cells Urine Crystals Urine Bacteria Urine Mucus Ur Culture Indicated? Urine Glucose Patient ABO/Rh Antibody Screen Crossmatch 01/08/22 01/08/22 17:20 17:20 WBC RBC Hgb Hct MCV MCH MCHC RDW Plt Count MPV Immature Gran % Neutrophils % Lymphocytes % Monocytes % Eosinophils % Basophils % Nucleated RBC % Absolute Neutrophils Absolute Lymphocytes Absolute Monocytes Absolute Eosinophils Absolute Basophils VBG Lactate 4.1 H* Sodium 141 Potassium 4.4 Chloride 107 Carbon Dioxide 26.5 Anion Gap 7.5 BUN 12 Creatinine 1.0 Est GFR (CKD-EPI 2020) 84.05 Glucose 143 H Calcium 8.4 L Magnesium 2.1 Troponin I < 50 Procalcitonin Urine Color Urine Clarity Urine pH Ur Specific [place]oe Urine Protein Urine Ketones Urine Blood Urine Nitrite Urine Bilirubin Urine Urobilinogen Ur Leukocyte Esterase Urine RBC Urine WBC Ur Epithelial Cells Urine Crystals Urine Bacteria Urine Mucus Ur Culture Indicated? Urine Glucose Patient ABO/Rh Antibody Screen Crossmatch 01/08/22 21:00 Urine - Cath Landry Indwelling Urine Culture - Pending 01/08/22 20:30 Blood Blood Culture - Pending 01/08/22 20:20 Blood Blood Culture - Pending Preliminary micro results at discharge 01/08/22 21:00 Urine Culture - Pending Urine - Cath Landry Indwelling 01/08/22 20:30 Blood Culture - Pending Blood 01/08/22 20:20 Blood Culture - Pending Blood [facility] All Active Problems (Updated 01/09/22 @ 08:18 by Ajit Delgado MD) Acute blood loss as cause of postoperative anemia (Acute) Hypotension (Acute) Near syncope (Acute) Bladder mass (Acute) Elevated PSA (Acute) 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 Father , stroke Stroke Sister No problems noted. Sister No problems noted. Sister No problems noted. Sister No problems noted. Brother , stomach cancer at age 52. Personal history of malignant neoplasm stomach Brother No problems noted. Brother No problems noted. Brother No problems noted. Brother No problems noted. Brother No problems noted. Brother No problems noted. Brother No problems noted. Social History Smoking/Tobacco Use Status: Never Smoking risk assessment performed?: Yes Alcohol Intake: former Year quit: 2006 Drug use: Never Substance use type: does not use Household members: spouse and children Housing: house Number of Children: 4 current occupation: self employed What type of physical activity do you participate in: weight lifting, running and additional Details: work Frequency: 3-4 times per week Seatbelt use: always Helmet use: Yes
--- NOTE | 2022-01-10 17:03 | PDOC.CMDIS ---
- If Service Date Differs Date of service: 01/09/22 Time of Service: 17:03 LACE Index Scoring Tool - Questions: Length of Stay (in days): 1 Acuity (Admit via E.D.?): No Comorbidities: Any Tumor E.D. Visits: 0 - Answers: Total Score: 3 Risk of Readmission: Low Risk Care Management Discharge Reason for Hospitalization: Bladder mass Discharge Plan: Raphael is discharged home via private vehicle with family. New RX for Bactrim is transmitted to [facility]. Raphael will call Dr. Delgado's office on Wednesday to make follow up appointments. Patient/Family Education Needs: Review discharge instuctions, limitations, medications and plan to follow up with community providers. Review ask me three.
== END 2022-01-09 17:25 | disposition home or self-care (01) | DRG 670 ==
LOC: PDS 15:50 → MS 16:32 → PDS 16:38
PROVIDERS: Family Medicine; Internal Medicine; Admitting Provider Urology; PCP Family Medicine; Visit Provider Urology
PROC: 0TBB8ZZ Excision of Bladder, Via Natural or Artificial Opening Endoscopic (ICD-10-PCS; CPT 52240; principal; 2022-01-08 12:30)
DX: N32.89 Other specified disorders of bladder (principal); R97.20 Elevated prostate specific antigen [PSA]; D59.6 Hemoglobinuria due to hemolysis from other external causes; I71.2 Thoracic aortic aneurysm, without rupture; E78.5 Hyperlipidemia, unspecified; K21.9 Gastro-esophageal reflux disease without esophagitis; E86.0 Dehydration; E86.1 Hypovolemia; I95.81 Postprocedural hypotension; C67.9 Malignant neoplasm of bladder, unspecified
CPT/HCPCS: 52240; 36415; 80048; 84145; 86850; 86900; 86901; 86920; 87040; 87635; 81003; 81015; 83605; 83735; 84484; 85014; 85018; 85025; 87086; 88307; 93005; 93010; 99223; J0690; J1100; J1885; J2405; J2704; P9016

== ENCOUNTER 2022-01-14 15:17 | Outpatient (REF) | payer BC, SELFPAY | END 2022-01-14 15:18 | disposition home or self-care (01) | LOC: LBN 15:17 | PROVIDERS: PCP Family Medicine; Visit Provider Nurse Practitioner Gerontology | DX: N39.0 Urinary tract infection, site not specified (principal) | CPT/HCPCS: 87086 ==

== ENCOUNTER → 2022-02-26 02:33 | Outpatient (CLI) | payer BC, SELFPAY ==
--- NOTE | 2022-02-26 06:45 | DI.RAD_ITS ---
Exam(s) XR HIP RT COMPLETE AP PELVIS EXAM: XR HIP RT COMPLETE AP PELVIS CLINICAL HISTORY: R hip pain,? ARTHRITIS, [id number]. TECHNIQUE: 2D digital imaging was performed of the right hip. Two images were obtained. AP pelvis a nd lateral right hip views were obtained. COMPARISON: No exams were available for comparison FINDINGS: BONES: No acute fracture is present. No bony destructive lesion is seen. JOINTS: No dislocation present. There is mild joint space narrowing and subchondral sclerosis in the right hip. Similar findings are seen in the left hip. There is an acetabular subchondral cyst and m ild acetabular spurring on the left. SOFT TISSUE: Normal. IMPRESSION: Mild degenerative changes of the right hip. DATA REPOSITORY: RADIATION DOSE DELIVERED:
== END ==
PROVIDERS: PCP Family Medicine; Visit Provider Family Medicine
DX: M16.11 Unilateral primary osteoarthritis, right hip (principal)
CPT/HCPCS: 73502

== ENCOUNTER → 2022-04-16 10:17 | Outpatient (BNVA) | payer MEDICARE, BC, SELFPAY | PROVIDERS: PCP Family Medicine; Referring Provider Family Medicine; Visit Provider Nurse Practitioner Gerontology | DX: R33.8 Other retention of urine (principal); C67.9 Malignant neoplasm of bladder, unspecified; N39.0 Urinary tract infection, site not specified | CPT/HCPCS: 51798; 81003; 99214 ==

== ENCOUNTER 2022-04-16 11:47 | Outpatient (REF) | payer MEDICARE, BC, SELFPAY | END 2022-04-16 11:48 | disposition home or self-care (01) | LOC: LBN 11:47 | PROVIDERS: PCP Family Medicine; Visit Provider Nurse Practitioner Gerontology | DX: N39.0 Urinary tract infection, site not specified (principal) | CPT/HCPCS: 87077; 87086; 87186 ==

== ENCOUNTER 2022-08-06 16:47 | Outpatient (REF) | payer MEDICARE, SELFPAY | END 2022-08-06 16:48 | disposition home or self-care (01) | LOC: LBN 16:47 | PROVIDERS: PCP Family Medicine; Visit Provider Urology | DX: C67.9 Malignant neoplasm of bladder, unspecified (principal); R82.998 Other abnormal findings in urine | CPT/HCPCS: 87077; 87086; 87186 ==

== ENCOUNTER 2022-11-06 15:43 | Outpatient (REF) | payer MEDICARE, SELFPAY | END 2022-11-06 15:44 | disposition home or self-care (01) | LOC: LBN 15:43 | PROVIDERS: PCP Family Medicine; Visit Provider Urology | DX: R39.89 Other symptoms and signs involving the genitourinary system (principal) | CPT/HCPCS: 87086 ==

== ENCOUNTER 2022-11-17 17:46 | Emergency (ER) | payer MEDICARE, SELFPAY ==
[2022-11-17] VITALS (7 sets, daily range): BP systolic 106–134; BP diastolic 69–90; PULSE 82–94; RESP 18; TEMP 37–37.6; O2SAT 96
--- NOTE | 2022-11-17 18:15 | DI.RAD_ITS ---
Exam(s) XR PORTABLE CHEST AP EXAM: XR PORTABLE CHEST AP CLINICAL HISTORY: fever, r/o pneumonia. TECHNIQUE: 2D digital imaging was performed. COMPARISON: CT CT ABDOMEN PELVIS WO/W from 01/08/2022 FINDINGS: Single AP portable view. Heart size is upper normal. The mediastinum is not widened. Lungs are clear. No infiltrates nor obvious pleural effusions. Mild elevation of the right hemidiaphragm noted IMPRESSION: No acute pulmonary findings on this single AP portable view of the chest.Mild elevation the right hem idiaphragm. DATA REPOSITORY: RADIATION DOSE DELIVERED:
--- NOTE | 2022-11-17 18:15 | W.ED.GENAD ---
Discharge Plan Disposition Patient Disposition: Home Condition: Good Discharge Details Clinical Impression: Acute UTI Primary Care Provider: David Venegas ED Provider: Elroy Valentine Home Meds and New Rx's Prescriptions: New ciprofloxacin HCl [Cipro] 500 mg tablet 500 mg PO BID Qty: 20 0RF No Action tamsulosin [Flomax] 0.4 mg capsule 0.8 mg PO DAILY Qty: 180 0RF Patient Comments: not taking diphenhydramine-acetaminophen [Tylenol PM Extra Strength] 25-500 mg tablet 2 tab PO .nightly PRN docusate sodium [Colace] 100 mg capsule 100 mg PO BID L.acidoph,saliva-B.bif-S.therm [Acidophilus Probiotic Blend] 175 mg capsule 1 cap PO DAILY sildenafil [Viagra] 100 mg tablet 100 mg PO DAILY PRN (Reason: sexual activity) Qty: 10 12RF Rx Instructions: as directed for ED Shingrix (PF) 50 mcg/0.5 mL suspension for reconstitution 50 mcg IM ONCE Qty: 1 1RF multivitamin [Daily Multi-Vitamin] 1 EACH tablet 1 ea PO DAILY Patient Comments: does not take meloxicam 15 mg tablet 15 mg PO DAILY Qty: 30 0RF Patient Comments: does not take losartan 25 mg tablet 25 mg PO DAILY doxycycline hyclate 100 mg capsule 100 mg PO BID Patient Comments: not taking alfuzosin 10 mg tablet extended release 24 hr 10 mg PO DAILY Patient Comments: Replacing tamsulosin magnesium 250 mg Tablet 500 mg PO DAILY Discharge Instructions Instructions: Urinary Tract Infection in Men (ED) Additional Instructions: At this time unfortunately you do have evidence of urinary tract infection. Looking at your last culture results from [facility] from 10/22/2022 you do have good sensitivities. We will start you on Cipro. Please be cautious with your joints and ligaments. Do not perform any aggressive activity while on this medication. This medication can cause irritation in your tendons, so if you notice any pain please avoid any more activity, stop the medication, and discuss further treatment with your primary care provider. If you notice any worsening of your symptoms, or any new symptoms such as vomiting, diarrhea, fever, chills, shortness of breath, chest pain, numbness, weakness, or fainting , please return immediately to the emergency department for reevaluation. Please follow up with your primary care provider as soon as possible for reassessment and reevaluation. As always, it was a pleasure participating in your medical care today. Referrals: David Venegas DO [Primary Care Provider] - Medical Decision Making 67-year-old male with a past medical history of ascending aortic aneurysm, bladder cancer, prostate enlargement, previous prostatic biopsy, who normally self catheterizes. Patient presents today with his for evaluation of fever. Patient states that about 2 and half weeks ago he was diagnosed with urinary tract infection with enteric coccus, faecalis which was pansensitive. He was treated with Macrobid for 2 weeks, and finished about a week ago. The patient had been doing well however over the last 2 to 3 days he began developing some frequency and urgency with urination. Patient then developed a fever today with a Tmax of 102. He denies any cough, chest pain, shortness of breath or abdominal pain. He denies any neck pain. No other complaints at this time. He is not currently on chemotherapy or radiation. Exam demonstrates well-appearing male, no nuchal rigidity, clear lung sounds. No suprapubic tenderness. Differential is highest for UTI. Will evaluate for this as well as other potential infectious etiologies, get blood cultures,, monitor closely and reassess. 7:55 PM Laboratory work-up shows evidence of UTI on urinalysis. WBC count is normal, no bandemia or left shift. Electrolytes stable, renal function stable. Chest x-ray negative for acute process. Patient otherwise feels well. Blood cultures have been sent. No evidence of significant tachycardia or hypotension suggestive of sepsis. Patient otherwise looks well. Patient stable for discharge. We did review previous cultures and he did have sensitivities to Cipro. We will use Cipro at this time. I did discuss with the patient the importance of caution against any vigorous activities that could result in tendon irritation as well as the potential side effects for Cipro. Discussed red flags for which to return. I have extensively reviewed the treatment plan and discharge instructions with the patient. I have addressed all patient concerns at this time. The patient was made aware of what symptoms to monitor for that would warrant a return to the emergency department. Discussed the plan with the patient, they demonstrate verbal understanding and agreement with our assessment and plan at this time. The documentation in this chart was dictated using [employer] dictation software. Please excuse any dictation errors. FINDINGS: Limitations: The extreme lung apices and upper ribs are partially excluded from view and cannot be evaluated. Lungs: Within the limits of the exam, no pulmonary consolidation is seen. Pleural spaces: No pleural effusion or pneumothorax is demonstrated. Heart/Mediastinum: Heart size is normal. Diaphragm: There is elevation of the right hemidiaphragm, also seen on the comparison CT exam. Bones/joints: The visualized bony structures appear grossly intact, as seen. IMPRESSION: Upper ribs and extreme lung apices partially excluded from view and not evaluated. Otherwise, no active disease seen in the chest. Thank you for allowing us to participate in the care of your patient. Dictated and Authenticated by: Davin Wagner MD 11/17/2022 7:47 PM Eastern Time ([place] & [place]) HPI General Date/Time Provider Initiated Documentation: 11/17/22 18:03. HPI Narrative: 67-year-old male with a past medical history of ascending aortic aneurysm, bladder cancer, prostate enlargement, previous prostatic biopsy, who normally self catheterizes. Patient presents today with his for evaluation of fever. Patient states that about 2 and half weeks ago he was diagnosed with urinary tract infection with enteric coccus, faecalis which was pansensitive. He was treated with Macrobid for 2 weeks, and finished about a week ago. The patient had been doing well however over the last 2 to 3 days he began developing some frequency and urgency with urination. Patient then developed a fever today with a Tmax of 102. He denies any cough, chest pain, shortness of breath or abdominal pain. He denies any neck pain. No other complaints at this time. He is not currently on chemotherapy or radiation. Related Data Home Medications Medication Instructions Recorded Confirmed multivitamin (Daily Multi-Vitamin 1 ea PO DAILY 08/24/12 03/11/22 tablet) varicella-zoster glycoE vacc-AS01B 50 mcg IM ONCE #1 ea 02/04/18 03/11/22 adj(PF) 50 mcg/0.5 mL IM susp, kit (Shingrix (PF)) magnesium 250 mg tablet 500 mg PO DAILY 01/08/22 11/17/22 L.acidophil,salivari-Bifido 1 cap PO DAILY 02/24/22 03/11/22 bifidum-Strep thermoph 175 mg capsule (Acidophilus Probiotic Blend) diphenhydramine 25 2 tab PO .nightly PRN 02/24/22 11/17/22 mg-acetaminophen 500 mg tablet (Tylenol PM Extra Strength) docusate sodium 100 mg capsule 100 mg PO BID 02/24/22 11/17/22 (Colace) sildenafil 100 mg tablet (Viagra) 100 mg PO DAILY PRN sexual 02/24/22 11/17/22 activity #10 tab-caps tamsulosin 0.4 mg capsule (Flomax) 0.8 mg PO DAILY #180 caps 03/11/22 03/11/22 meloxicam 15 mg tablet 15 mg PO DAILY #30 tabs 03/17/22 losartan 25 mg tablet 25 mg PO DAILY 05/06/22 11/17/22 doxycycline hyclate 100 mg capsule 100 mg PO BID 06/15/22 alfuzosin 10 mg tablet,extended 10 mg PO DAILY Elevated PSA 08/07/22 11/17/22 release 24 hr ciprofloxacin HCl 500 mg tablet 500 mg PO BID #20 tabs 11/17/22 (Cipro) Previous Rx's Medication Instructions Recorded varicella-zoster glycoE vacc-AS01B 50 mcg IM ONCE #1 ea 02/04/18 adj(PF) 50 mcg/0.5 mL IM susp, kit (Shingrix (PF)) sildenafil 100 mg tablet (Viagra) 100 mg PO DAILY PRN sexual 02/24/22 activity #10 tab-caps tamsulosin 0.4 mg capsule (Flomax) 0.8 mg PO DAILY #180 caps 03/11/22 meloxicam 15 mg tablet 15 mg PO DAILY #30 tabs 03/17/22 ciprofloxacin HCl 500 mg tablet 500 mg PO BID #20 tabs 11/17/22 (Cipro) Allergies Allergy/AdvReac Type Severity Reaction Status Date / Time No Known Allergies Allergy Verified 11/17/22 17:54 General Stated Complaint: Fever LIDIA: 3 Review of Systems All systems reviewed & are unremarkable except as noted in HPI and below PFSH All Active Problems (Updated 11/17/22 @ 19:52 by Elroy Valentine DO) Acute UTI (Acute) Urinary retention (Acute) EIC (epidermal inclusion cyst) (Acute ~06/11/22) Trochanteric bursitis of right hip (Acute ~05/12/22) Aneurysm (Acute ~04/2022) 05/01/22 Cardiology Malignant neoplasm of overlapping sites of bladder (Acute) Incomplete bladder emptying (Acute) Osteoarthritis of right hip (Acute) Urothelial carcinoma of bladder (Acute) Acute blood loss as cause of postoperative anemia (Acute) Elevated PSA (Acute) 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 Father , stroke Stroke Sister No problems noted. Sister No problems noted. Sister No problems noted. Sister No problems noted. Brother , stomach cancer at age 52. Personal history of malignant neoplasm stomach Brother No problems noted. Brother No problems noted. Brother No problems noted. Brother No problems noted. Brother No problems noted. Brother No problems noted. Brother No problems noted. Social History Smoking/Tobacco Use Status: Never Smoking risk assessment performed?: Yes Alcohol Intake: former Year quit: 2006 Drug use: Never Substance use type: does not use Household members: spouse and children Housing: house Number of Children: 4 current occupation: self employed What type of physical activity do you participate in: weight lifting, running and additional Details: work Frequency: 3-4 times per week Seatbelt use: always Helmet use: Yes Exam Narrative Exam Narrative: 1.Const: Well-nourished, Well-developed, appearing stated age 2.Eyes: PERRL, no conjunctival injection, and symmetrical lids. 3.ENT: Atraumatic external nose and ears. Moist MM. Neck: Symmetric, trachea midline, No thyromegaly. 4.CVS: +S1/S2, No murmurs or gallops. Peripheral pulses 2+ and equal in all extremities. Brisk capillary refill in all extremities. 5.RESP: Unlabored respiratory effort. Clear to auscultation bilaterally. No wheezes rales or rhonchi 6.GI: Soft, Nontender/Nondistended, No hepatosplenomegaly. No guarding or rebound. 7.MSK: Normocephalic/Atraumatic, Extremities w/o deformity or ttp No cyanosis or clubbing, Normal movement of all extremities 8.Skin: Warm, Dry. No rashes or lesions. 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 Sensation grossly intact, no focal neurologic deficits. 10.Psych: (AAO) x3. Appropriate mood and affect Course Vital Signs Vital signs: Vital Signs Temperature 37.6 C 11/17/22 17:50 Pulse 94 H 11/17/22 17:50 Respiratory Rate 18 11/17/22 17:50 Blood Pressure 126/69 11/17/22 17:50 Pulse Oximetry 96 11/17/22 17:50 Temperature 37.6 C 11/17/22 17:50 Temperature Source Temporal Artery Scan 11/17/22 17:50 Pulse 94 H 11/17/22 17:50 Respiratory Rate 18 11/17/22 17:50 Respiratory Effort Normal, Non-Labored 11/17/22 17:58 Blood Pressure 126/69 11/17/22 17:50 Blood Pressure Position Sitting 11/17/22 17:50 Pulse Oximetry 96 11/17/22 17:50 Oxygen Delivery Method Room Air 11/17/22 17:50 Oxygen Flow Rate 0 11/17/22 17:50 Lab/Test Results Lab/Test Results: 11/17/22 18:13 Blood Blood Culture - Pending 11/17/22 18:13 Blood Blood Culture - Pending
[2022-11-17 18:37] LABS: Lactate 0.8 mmol/L (0.6-1.4)
[2022-11-17 18:39] LABS: Abs Immature Grans 0.02 10^3/uL (0.0-0.06); Absolute Basophil Count 0.07 10^3/uL (0.0-0.2); Absolute Lymphocyte Count 1.05 10^3/uL (1.2-3.4); Absolute Monocyte Count 0.94 10^3/uL (0.1-0.8); Absolute Neutrophil Count 4.63 10^3/uL (1.2-6.7); Eosinophils % 1.5; HCT 38.5 % (40.0-50.0); HGB 12.6 g/dL (13.5-17.5); Immature Grans % 0.3; Lymphocytes % 15.4; MCH 26.6 pg (27.0-33.0); MCHC 32.7 % (32.0-36.0); MCV 81 fL (80-95); Monocytes % 13.8; Platelet Count 179 10^3/uL (130-400); RBC 4.73 10^6/uL (4.36-5.78); RDW 14.8 % (11.8-14.1); RDW-SD 44.2 fL; WBC 6.81 10^3/uL (4.4-10.8)
--- NOTE | 2022-11-17 18:42 | NUR.NOTE ---
Nursing Note: Patient self caths with a 12Fr coude cath per patient and confirmed by female visitor present in room; called dry house worker to assist in locating a 12Fr coude as that is not a size the ER stocks.
[2022-11-17 18:54] LABS: ALT 28 U/L (16-63); AST 24 U/L (15-37); Albumin 3.6 g/dL (3.4-5.0); Alkaline Phosphatase 53 U/L (46-116); Anion Gap 8.4 mmol/L (3-11); BUN 10 mg/dL (7-18); Bilirubin, Total 0.4 mg/dL (0.2-1.0); CO2 25.6 mmol/L (21.0-32.0); Calcium 8.5 mg/dL (8.5-10.1); Chloride 100 mmol/L (98-107); Estimated GFR 83.52 (mL/min/1.73m2); Glucose 109 mg/dL (74-106); Sodium 134 mmol/L (136-145); Total Protein 7.1 g/dL (6.4-8.2)
[2022-11-17 19:39] LABS: Bilirubin Negative (Negative); Blood Moderate (Negative); Clarity Clear (Clear); Glucose Negative (Negative); Ketones Negative (Negative); Leukocyte Esterase Large (Negative); Nitrite Negative (Negative); Urobilinogen 0.2 mg/dL (Up to 0.2)
--- NOTE | 2022-11-17 19:48 | DI.VRAD_ITS ---
PROCEDURE INFORMATION: Exam: XR Chest Exam date and time: 11/17/2022 7:07 PM Age: 67 years old Clinical indication: Fever TECHNIQUE: Imaging protocol: Radiologic exam of the chest. Views: 1 view. COMPARISON: CT ABDOMEN PELVIS WO/W 01/08/2022 8:49 AM FINDINGS: Limitations: The extreme lung apices and upper ribs are partially excluded from view and cannot be evaluated. Lungs: Within the limits of the exam, no pulmonary consolidation is seen. Pleural spaces: No pleural effusion or pneumothorax is demonstrated. Heart/Mediastinum: Heart size is normal. Diaphragm: There is elevation of the right hemidiaphragm, also seen on the comparison CT exam. Bones/joints: The visualized bony structures appear grossly intact, as seen. IMPRESSION: Upper ribs and extreme lung apices partially excluded from view and not evaluated. Otherwise, no active disease seen in the chest. Dictated and Authenticated by: Davin Wagner MD. Ordering:MARIZA Abbasi MD
[2022-11-17 19:49] LABS: Bacteria Moderate HPF (Negative); C & S Indicated? C&S Done As Ordered; Casts Negative LPF (Negative); Crystals Negative HPF (Negative); Epithelial Cells Rare HPF (Negative); Mucus Negative (Negative); Other Cells Rare Transitional (Negative); WBC 20-50 HPF (0-5)
[2022-11-17] MEDS: CIPROFLOXACIN 400 MG/200 ML BAG 200 MG IVPB (20:11)
== END 2022-11-17 21:45 | disposition home or self-care (01) ==
PROVIDERS: Emergency Provider Student in an Organized Health Care Education/Training Program; PCP Family Medicine
DX: N39.0 Urinary tract infection, site not specified (principal); N40.0 Benign prostatic hyperplasia without lower urinary tract symptoms; Z85.51 Personal history of malignant neoplasm of bladder
CPT/HCPCS: 80053; 87040; 87077; 96365; 99283; 71045; 81003; 81015; 83605; 85025; 87086; 87186; J0744

== ENCOUNTER 2022-12-07 12:28 | Emergency (ER) | payer MEDICARE, SELFPAY ==
[2022-12-07 12:40] VITALS: BP 123/80; PULSE 67; RESP 20; TEMP 37.1; O2SAT 99
[2022-12-07 13:49] LABS: Bilirubin Negative (Negative); Blood Negative (Negative); Clarity Clear (Clear); Glucose Negative (Negative); Ketones Negative (Negative); Leukocyte Esterase Trace (Negative); Nitrite Negative (Negative); Specific Gravity 1.015 (1.005-1.025); Urobilinogen 0.2 mg/dL (Up to 0.2); pH 7.5 (5-8)
[2022-12-07 13:54] LABS: Abs Immature Grans 0.04 10^3/uL (0.0-0.06); Absolute Basophil Count 0.11 10^3/uL (0.0-0.2); Absolute Eosinophil Count 0.38 10^3/uL (0.0-0.7); Absolute Lymphocyte Count 2.34 10^3/uL (1.2-3.4); Absolute Monocyte Count 0.53 10^3/uL (0.1-0.8); Absolute Neutrophil Count 1.77 10^3/uL (1.2-6.7); Basophils % 2.1; Eosinophils % 7.4; HCT 43.1 % (40.0-50.0); HGB 13.8 g/dL (13.5-17.5); Immature Grans % 0.8; Lymphocytes % 45.3; MCH 26.6 pg (27.0-33.0); MCV 83 fL (80-95); MPV 8.8 fL (8.0-11.0); Monocytes % 10.3; Neutrophils % 34.1; Platelet Count 269 10^3/uL (130-400); RBC 5.18 10^6/uL (4.36-5.78); RDW 14.7 % (11.8-14.1); RDW-SD 45.1 fL; WBC 5.17 10^3/uL (4.4-10.8)
[2022-12-07 13:56] LABS: Bacteria Negative HPF (Negative); C & S Indicated? Yes; Casts Negative LPF (Negative); Crystals Negative HPF (Negative); Epithelial Cells Rare HPF (Negative); Mucus Negative (Negative); RBC Negative HPF (0-2); WBC 0-2 HPF (0-5)
[2022-12-07 14:00] LABS: Lactate 1.5 mmol/L (0.6-1.4)
--- NOTE | 2022-12-07 14:15 | NUR.NOTE ---
Nursing Note: The patient aggressively demanded that his IV be removed because he was leaving. Tati RN just about to draw 2nd set of blood cultures. Patient left prior to them being obtained. The patient stated he had things to do and would not be staying any longer. Informed patient we did not have all results back and that in leaving he would assume all risks associated with signing out AGAINST MEDICAL ADVICE. IV was removed intact, bandage applied, patient walked out to ED lobby and presumably left [facility] premises.
[2022-12-07 14:18] LABS: ALT 30 U/L (16-63); AST 22 U/L (15-37); Alkaline Phosphatase 59 U/L (46-116); Anion Gap 7.1 mmol/L (3-11); BUN 8 mg/dL (7-18); Bilirubin, Total 0.4 mg/dL (0.2-1.0); CO2 29.9 mmol/L (21.0-32.0); CREATININE 0.9 mg/dL (0.70-1.30); Calcium 9.3 mg/dL (8.5-10.1); Chloride 104 mmol/L (98-107); Estimated GFR 94.78 (mL/min/1.73m2); Glucose 85 mg/dL (74-106); Potassium 3.9 mmol/L (3.5-5.1); Sodium 141 mmol/L (136-145); Total Protein 7.8 g/dL (6.4-8.2)
--- NOTE | 2022-12-07 14:25 | W.EDPROG ---
Date of service: 12/07/22 Time of Service: 14:28 Medical Decision Making I called this patient earlier today and asked him to return for a positive set of blood cultures, he did return to the emergency department and while the patient was in the waiting room I placed laboratory orders for assessment Prior to patient being placed in a room and my evaluation, patient eloped and was not assessed by me during this visit aside from diagnostic blood work, pending blood cultures, reportedly received only 1 set, lactate is noted to be slightly elevated at 1.5 Diagnostic vitals stable, ambulatory into emergency department, no leukocytosis I was not able to discuss the results with patient as he eloped prior to assessment patient was reportedly alert and oriented during his triage assessment and of decisional capacity Discharge Plan Discharge Details Chief Complaint: Recheck Primary Care Provider: David Venegas ED Provider: Ni Mejia Home Meds and New Rx's Prescriptions: No Action tamsulosin [Flomax] 0.4 mg capsule 0.8 mg PO DAILY Qty: 180 0RF Patient Comments: not taking diphenhydramine-acetaminophen [Tylenol PM Extra Strength] 25-500 mg tablet 2 tab PO .nightly PRN docusate sodium [Colace] 100 mg capsule 100 mg PO BID L.acidoph,saliva-B.bif-S.therm [Acidophilus Probiotic Blend] 175 mg capsule 1 cap PO DAILY sildenafil [Viagra] 100 mg tablet 100 mg PO DAILY PRN (Reason: sexual activity) Qty: 10 12RF Rx Instructions: as directed for ED Shingrix (PF) 50 mcg/0.5 mL suspension for reconstitution 50 mcg IM ONCE Qty: 1 1RF multivitamin [Daily Multi-Vitamin] 1 EACH tablet 1 ea PO DAILY Patient Comments: does not take meloxicam 15 mg tablet 15 mg PO DAILY Qty: 30 0RF Patient Comments: does not take losartan 25 mg tablet 25 mg PO DAILY doxycycline hyclate 100 mg capsule 100 mg PO BID Patient Comments: not taking alfuzosin 10 mg tablet extended release 24 hr 10 mg PO DAILY Patient Comments: Replacing tamsulosin magnesium 250 mg Tablet 500 mg PO DAILY
[2022-12-07 14:30] LABS: Procalcitonin < 0.1 ng/mL
== END 2022-12-07 14:16 | disposition left against medical advice (07) ==
PROVIDERS: Emergency Provider Physician Assistant; PCP Family Medicine
DX: Z53.21 Procedure and treatment not carried out due to patient leaving prior to being seen by health care provider (principal)
CPT/HCPCS: 80053; 84145; 87040; 87077; 81003; 81015; 83605; 85025; 87086

== ENCOUNTER 2023-01-02 11:00 | Emergency (ER) | payer MEDICARE, SELFPAY ==
[2023-01-02 11:01] VITALS: BP 139/77; PULSE 79; RESP 16; TEMP 36.8; O2SAT 98
--- NOTE | 2023-01-02 11:17 | W.ED.GENAD ---
Discharge Plan Disposition Patient Disposition: Home Condition: Stable Discharge Details Clinical Impression: Fever, Urinary tract infection Primary Care Provider: David Venegas ED Provider: Koffi Wong Home Meds and New Rx's Prescriptions: New cephalexin 500 mg tablet 500 mg PO QID Qty: 28 0RF Continued diphenhydramine-acetaminophen [Tylenol PM Extra Strength] 25-500 mg tablet 2 tab PO .nightly PRN docusate sodium [Colace] 100 mg capsule 100 mg PO BID L.acidoph,saliva-B.bif-S.therm [Acidophilus Probiotic Blend] 175 mg capsule 1 cap PO DAILY sildenafil [Viagra] 100 mg tablet 100 mg PO DAILY PRN (Reason: sexual activity) Qty: 10 12RF Rx Instructions: as directed for ED Shingrix (PF) 50 mcg/0.5 mL suspension for reconstitution 50 mcg IM ONCE Qty: 1 1RF losartan 25 mg tablet 25 mg PO DAILY alfuzosin 10 mg tablet extended release 24 hr 10 mg PO DAILY Patient Comments: Replacing tamsulosin magnesium 250 mg Tablet 500 mg PO DAILY Discontinued multivitamin [Daily Multi-Vitamin] 1 EACH tablet 1 ea PO DAILY Patient Comments: does not take meloxicam 15 mg tablet 15 mg PO DAILY Qty: 30 0RF Patient Comments: does not take Medical Decision Making 67 yo male with hx of bladder cancer, prostate enlargement, previous prostatic biopsy, who normally self catheterizes 5 or more times a day, comes in with cc of fever last night. HE states during the day yesterday he felt well and then in the night had chills and checked his temp and it was 103. He has been afebrile this morning and feels well. HE denies cough, dyspnea, headaches, neck stiffness, chest pain, abdomen pain. HE has noticed some increased need to self cath the last day. He appears well on exam, caox4 speaking clearly and is afebrile. Unclear cause for his fever last night, will check cbc, cmp, procalcitonin, ua. HE has no murmurs or skin lesions to suggest endocarditis. No respiratory symptoms so do not feel xray indicated. 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 Lab Data Lab results reviewed: Yes I reviewed the patient's lab results. HPI General Mode of arrival: ambulatory. Date/Time Provider Initiated Documentation: 01/02/23 11:01. Limitations to Documentation: no limitations. Information obtained by: patient. History of Present Illness 67 year old M presents to the emergency department with the chief complaint of fever, described as moderate, Patient started experiencing this day(s) (1) and it has been now resolved. No relieving factors improve symptom(s), No exacerbating factors reported . Patient notes denies chest pain, cough and shortness of breath. Patient did receive the following treatments prior to arrival, none Related Data Home Medications Medication Instructions Recorded Confirmed varicella-zoster glycoE vacc-AS01B 50 mcg IM ONCE #1 ea 02/04/18 01/02/23 adj(PF) 50 mcg/0.5 mL IM susp, kit (Shingrix (PF)) magnesium 250 mg tablet 500 mg PO DAILY 01/08/22 01/02/23 L.acidophil,salivari-Bifido 1 cap PO DAILY 02/24/22 01/02/23 bifidum-Strep thermoph 175 mg capsule (Acidophilus Probiotic Blend) diphenhydramine 25 2 tab PO .nightly PRN 02/24/22 01/02/23 mg-acetaminophen 500 mg tablet (Tylenol PM Extra Strength) docusate sodium 100 mg capsule 100 mg PO BID 02/24/22 01/02/23 (Colace) sildenafil 100 mg tablet (Viagra) 100 mg PO DAILY PRN sexual 02/24/22 01/02/23 activity #10 tab-caps losartan 25 mg tablet 25 mg PO DAILY 05/06/22 01/02/23 alfuzosin 10 mg tablet,extended 10 mg PO DAILY Elevated PSA 08/07/22 01/02/23 release 24 hr cephalexin 500 mg tablet 500 mg PO QID #28 tabs 01/02/23 Previous Rx's Medication Instructions Recorded varicella-zoster glycoE vacc-AS01B 50 mcg IM ONCE #1 ea 02/04/18 adj(PF) 50 mcg/0.5 mL IM susp, kit (Shingrix (PF)) sildenafil 100 mg tablet (Viagra) 100 mg PO DAILY PRN sexual 02/24/22 activity #10 tab-caps cephalexin 500 mg tablet 500 mg PO QID #28 tabs 01/02/23 Allergies Allergy/AdvReac Type Severity Reaction Status Date / Time No Known Allergies Allergy Verified 01/02/23 11:07 General Stated Complaint: Urinary LIDIA: 3 Review of Systems All systems reviewed & are unremarkable except as noted in HPI and below Constitutional Constitutional: Denies weakness ENT Ears, Nose, Mouth, and Throat: Denies change in voice Cardiovascular Cardiovascular: Denies chest pain and Denies dyspnea Respiratory Respiratory: Denies cough and Denies dyspnea Gastrointestinal Gastrointestinal: Denies abdominal pain, Denies nausea and Denies vomiting Integumentary/Breasts Skin/Breast: Denies rash Neurologic Neurologic: Denies weakness PFS All Active Problems (Updated 01/02/23 @ 12:53 by Koffi Wong MD) Fever (Acute) Urinary tract infection (Acute) Prostate cancer (Chronic ~11/2022) Urinary retention (Acute) EIC (epidermal inclusion cyst) (Acute ~06/11/22) Trochanteric bursitis of right hip (Acute ~05/12/22) Aneurysm (Acute ~04/2022) 05/01/22 Cardiology Malignant neoplasm of overlapping sites of bladder (Acute) Incomplete bladder emptying (Acute) Osteoarthritis of right hip (Acute) Urothelial carcinoma of bladder (Acute) Acute blood loss as cause of postoperative anemia (Acute) Elevated PSA (Acute) 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 Father , stroke Stroke Sister No problems noted. Sister No problems noted. Sister No problems noted. Sister No problems noted. Brother , stomach cancer at age 52. Personal history of malignant neoplasm stomach Brother No problems noted. Brother No problems noted. Brother No problems noted. Brother No problems noted. Brother No problems noted. Brother No problems noted. Brother No problems noted. Social History Smoking/Tobacco Use Status: Never Smoking risk assessment performed?: Yes Alcohol Intake: former Year quit: 2006 Drug use: Never Substance use type: does not use Household members: spouse and children Housing: house Number of Children: 4 current occupation: self employed What type of physical activity do you participate in: weight lifting, running and additional Details: work Frequency: 3-4 times per week Seatbelt use: always Helmet use: Yes Exam Const General: no acute distress Orientation: alert HENMT Head: normal to inspection Ears: external ears normal General nose exam: external nose normal Mouth: moist mucous membranes Eyes General: appearance normal, both eyes and all related structures Neck Neck: normal visual inspection Resp Effort & Inspection: normal respiratory effort and able to speak in complete sentences Auscultation: clear to auscultation bilaterally Cardio Rate: regular rate Heart Sounds: no murmurs GI Palpation: soft and nontender Back/Spine/Pelvis Back: no CVA tenderness Skin General skin exam: no rashes or lesions noted Neuro General: patient alert and patient oriented x3 Extrem General: normal to inspection Psych Mental Status: mental status grossly normal Course Vital Signs Vital signs: Vital Signs Temperature 36.8 C 01/02/23 11:01 Pulse 79 01/02/23 11:01 Respiratory Rate 16 01/02/23 11:01 Blood Pressure 139/77 01/02/23 11:01 Pulse Oximetry 98 01/02/23 11:01 Temperature 36.8 C 01/02/23 11:01 Temperature Source Temporal Artery Scan 01/02/23 11:01 Pulse 79 01/02/23 11:01 Respiratory Rate 16 01/02/23 11:01 Blood Pressure 139/77 01/02/23 11:01 Blood Pressure Position Sitting 01/02/23 11:01 Pulse Oximetry 98 01/02/23 11:01 Oxygen Delivery Method Room Air 01/02/23 11:01 Oxygen Flow Rate 0 01/02/23 11:01 Pain Level 0 01/02/23 11:01 Lab/Test Results Lab/Test Results: 01/02/23 11:02 Blood Blood Culture - Pending 01/02/23 11:02 Blood Blood Culture - Pending
[2023-01-02 11:50] LABS: Abs Immature Grans 0.03 10^3/uL (0.0-0.06); Absolute Basophil Count 0.12 10^3/uL (0.0-0.2); Absolute Eosinophil Count 0.14 10^3/uL (0.0-0.7); Absolute Lymphocyte Count 0.97 10^3/uL (1.2-3.4); Absolute Monocyte Count 0.73 10^3/uL (0.1-0.8); Absolute Neutrophil Count 8.84 10^3/uL (1.2-6.7); Basophils % 1.1; Eosinophils % 1.3; HCT 42.4 % (40.0-50.0); HGB 13.7 g/dL (13.5-17.5); Immature Grans % 0.3; MCHC 32.3 % (32.0-36.0); MCV 84 fL (80-95); MPV 8.9 fL (8.0-11.0); Monocytes % 6.7; Neutrophils % 81.6; Platelet Count 204 10^3/uL (130-400); RBC 5.08 10^6/uL (4.36-5.78); RDW 14.4 % (11.8-14.1); RDW-SD 43.8 fL; WBC 10.83 10^3/uL (4.4-10.8)
[2023-01-02 12:05] LABS: INR 1.1 (0.9-1.1); PTT Activated 29.1 sec (21.5-31.9); Prothrombin Time 10.8 sec (9.3-11.0)
[2023-01-02 12:16] LABS: ALT 30 U/L (16-63); AST 21 U/L (15-37); Albumin 3.7 g/dL (3.4-5.0); Alkaline Phosphatase 56 U/L (46-116); Anion Gap 5.2 mmol/L (3-11); BUN 13 mg/dL (7-18); Bilirubin, Total 1.1 mg/dL (0.2-1.0); CO2 29.8 mmol/L (21.0-32.0); Chloride 102 mmol/L (98-107); Estimated GFR 83.52 (mL/min/1.73m2); Glucose 100 mg/dL (74-106); Magnesium 1.9 mg/dL (1.8-2.4); Sodium 137 mmol/L (136-145); TSH (W/Ref FT4) 0.62 uIU/mL (0.36-3.74); Total Protein 7.6 g/dL (6.4-8.2)
[2023-01-02 12:18] LABS: Bilirubin Negative (Negative); Blood Negative (Negative); Clarity Sl Cloudy (Clear); Glucose Negative (Negative); Ketones Trace mg/dL (Negative); Leukocyte Esterase Small (Negative); Nitrite Positive (Negative); Urobilinogen 0.2 mg/dL (Up to 0.2); pH 6.5 (5-8)
[2023-01-02 12:27] LABS: Epithelial Cells Negative HPF (Negative); RBC 0-2 HPF (0-2); WBC >50 HPF (0-5)
[2023-01-02 12:28] LABS: Bacteria Many HPF (Negative); C & S Indicated? Yes; Casts Negative LPF (Negative); Crystals Negative HPF (Negative); Mucus Negative (Negative)
[2023-01-02 12:36] LABS: Procalcitonin 0.4 ng/mL
[2023-01-02] MEDS: cefTRIAXone 2 GM/50 ML BAG IVPB (13:03)
[2023-01-02 13:43] VITALS: BP 128/80; PULSE 78; RESP 18; TEMP 37; O2SAT 99
--- NOTE | 2023-01-04 11:37 | NUR.NOTE ---
Accessed pt chart to determine antibiotics on discharge. Nursing Note:
--- NOTE | 2023-01-05 08:39 | ED.FU.B_ITS ---
Date of service: 01/05/23 Time of Service: 08:39 Follow Up Plan: pt's urine came back growing morganella morgani and resistant to cefazolin, called and pt is doing well and has no symptoms, no fevers, [place] [facility] [place] advised to stop the cephalexin and sent in cipro to his pharmacy
== END 2023-01-02 13:59 | disposition home or self-care (01) ==
PROVIDERS: Emergency Provider Emergency Medicine; PCP Family Medicine
DX: N39.0 Urinary tract infection, site not specified (principal); C67.9 Malignant neoplasm of bladder, unspecified; N40.0 Benign prostatic hyperplasia without lower urinary tract symptoms; Z79.899 Other long term (current) drug therapy
CPT/HCPCS: 36415; 80053; 84145; 87040; 87077; 87426; 87637; 96374; 99283; 81003; 81015; 83735; 84443; 85025; 85610; 85730; 87086; 87186

== ENCOUNTER 2023-02-03 13:38 | Outpatient (REF) | payer MEDICARE, SELFPAY | END 2023-02-03 13:39 | disposition home or self-care (01) | LOC: LBN 13:38 | PROVIDERS: PCP Family Medicine; Visit Provider Urology | DX: R39.9 Unspecified symptoms and signs involving the genitourinary system (principal) | CPT/HCPCS: 87077; 87086; 87186 ==

== ENCOUNTER → 2023-02-24 10:26 | Outpatient (BNVA) | payer MEDICARE, SELFPAY | PROVIDERS: PCP Family Medicine; Referring Provider Family Medicine; Visit Provider Surgery | DX: R19.5 Other fecal abnormalities (principal) | CPT/HCPCS: 99213 ==

== ENCOUNTER 2023-04-02 08:35 | Day surgery (SDC) | payer MEDICARE, SELFPAY ==
--- NOTE | 2023-04-01 21:24 | W.PM.DSUDISC ---
Date of service: 04/02/23 Time of Service: 11:20 Discharge Plan Disposition Patient Disposition: Home Condition: Good Discharge Details Reason For Visit: Diagnostic EGD and Colonoscopy Attending Provider: Antolin Woody Primary Care Provider: David Venegas Home Meds and New Rx's Prescriptions: Continued diphenhydramine-acetaminophen [Tylenol PM Extra Strength] 25-500 mg tablet 2 tab PO .nightly PRN Shingrix (PF) 50 mcg/0.5 mL suspension for reconstitution 50 mcg IM ONCE Qty: 1 1RF losartan 25 mg tablet 25 mg PO DAILY docusate sodium 50 mg/5 mL liquid 50 mg PO DAILY therapeutic multivitamin Tablet 1 tab PO QAM sildenafil [Viagra] 100 mg tablet 100 mg PO DAILY PRN (Reason: sexual activity) Qty: 10 12RF Rx Instructions: as directed for ED Discontinued polyethylene glycol 3350 17 gram/dose powder 238 g PO ONCE Qty: 238 0RF Rx Instructions: take per colonoscopy instructions bisacodyl [Dulcolax (bisacodyl)] 5 mg tablet,delayed release (DR/EC) 5 mg PO ONCE Qty: 4 0RF Rx Instructions: take per colonoscopy instructions No Action psyllium husk [Daily Fiber] 0.4 gram capsule 0.4 g PO DAILY Tart Watson [id number] mg capsule 1 cap PO BID Discharge Instructions Instructions: Diverticulosis (ED), Colorectal Polyps (GEN), Diverticulosis Diet (GEN) Additional Instructions: Lowell, we were able to complete your procedures today without any difficulty. Your upper endoscopy was totally normal. I did not see any signs of stomach inflammation, bleeding, worrisome changes around your esophagus, or anything out of the ordinary. To be safe, I did do some biopsies here, but I did not see anything to worry about. Your colonoscopy also went very smoothly. I did find several polyps. I removed a total of 4 of them. All were relatively small, and there were no features to the naked eye that appeared concerning. Similar to the biopsies, I will send off all of these polyps to be reviewed by the pathologist. Once I have the results of all of those tests I will be in touch with any other recommendations. In the meantime, if you have any questions at all, please do not hesitate to call. 1. If tolerated, consume a soft, low fiber diet for 1-2 days. 2[address] Do not drive, drink alcohol, operate machinery, make critical decisions, or do activities that require coordination or balance for 24 hours. 3. Because air was put into your colon during the procedure, expelling air from your rectum (passing gas or farting) is normal. 4. You may not have a bowel movement for 1-3 days because of the colonoscopy prep. This is normal. 5. You may experience a sore throat for 24 to 48 hours. You may use throat lozenges or gargle with warm salt water to relieve the discomfort. 6. Because air was put into your stomach during the procedure, you may experience some belching. 7. Go directly to the emergency room if you notice any of the following: Develop chills (warm to touch), or if you have a thermometer and your temperature is above 101 Difficulty breathing or difficultly swallowing Persistent vomiting Severe abdominal pain, other than gas cramps Severe chest pain Black, tarry stools Any bleeding ? exceeding one tablespoon 8. Call your physician if the site where your intravenous was started becomes red, swollen, painful, and warm to touch. 9. Your physician has reviewed your pre-procedure medications. Please continue to take those medications as previously ordered. You will be given specific information/education regarding any changes to your medications before leaving. Activity:: Activity as Tolerated Diet:: As Tolerated Discharge Orders Discharge Orders: Discharge Order (Routine); Ordered 04/01/23 Ordered By: Antolin Woody DS: Diagnosis Discharge Diagnosis (1) Occult blood positive stool: Status: Acute Asessment and Plan: Follow-up on polypectomy results
--- NOTE | 2023-04-01 21:25 | W.PREOPHP ---
Assessment and Plan Assessment and plan (1) Occult blood positive stool: Status: Acute Assessment and plan: we reviewed the plan for EGD and colonoscopy again today as well as the risks and the benefits. He has no new questions or concerns, and I think were fine to proceed as planned History of Present Illness History of Present Illness Chief Complaint: Positive fecal occult blood test Narrative: He is 67 years old, and he underwent a colonoscopy just over 5 years ago. That test was normal. However, in the interim, he has developed fecal occult positive blood testing. His past medical history is also significant for bladder and prostate cancer. He underwent a trans urethral prostatectomy approximately 4 weeks ago. He has been doing well pretty well since then. He is planning to start radiation in April. He is quite concerned about the fecal occult blood test because he had a brother who of gastric cancer in his 50s. Lowell denies any melena, hematochezia, or other worrisome signs or symptoms of colon or rectal diseases. He does not have a significant amount of gastritis. He is a non-smoker. Other relevant medical history includes thoracic aortic aneurysmal disease. This is followed with echocardiograms. And progression over the past year is minimal. 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 Father , stroke Stroke Sister No problems noted. Sister No problems noted. Sister No problems noted. Sister No problems noted. Brother , stomach cancer at age 52. Personal history of malignant neoplasm stomach Brother No problems noted. Brother No problems noted. Brother No problems noted. Brother No problems noted. Brother No problems noted. Brother No problems noted. Brother No problems noted. Social History Smoking/Tobacco Use Status: Never Smoking risk assessment performed?: Yes Alcohol Intake: former Year quit: 2006 Drug use: Never Substance use type: does not use Household members: spouse and children Housing: house Number of Children: 4 current occupation: self employed What type of physical activity do you participate in: weight lifting, running and additional Details: work Frequency: 3-4 times per week Seatbelt use: always Helmet use: Yes Do you feel safe at home: Yes Do you feel safe in your relationship?: Yes Meds Allergies and Home Medications Allergies Allergy/AdvReac Type Severity Reaction Status Date / Time No Known Allergies Allergy Verified 04/02/23 09:02 Home Medications Medication Instructions Recorded Confirmed Type varicella-zoster glycoE [id number] 50 mcg IM ONCE #1 ea 02/04/18 04/01/23 Rx adj(PF) 50 mcg/0.5 mL IM susp, kit (Shingrix (PF)) diphenhydramine 25 2 tab PO .nightly PRN 02/24/22 04/02/23 History mg-acetaminophen 500 mg tablet (Tylenol PM Extra Strength) losartan 25 mg tablet 25 mg PO DAILY 05/06/22 04/02/23 History docusate sodium 50 mg/5 mL oral 50 mg PO DAILY 02/01/23 04/02/23 History liquid therapeutic multivitamin 1 tab PO QAM 02/01/23 04/02/23 History sildenafil 100 mg tablet (Viagra) 100 mg PO DAILY PRN sexual 03/01/23 04/01/23 Rx activity #10 tab-caps psyllium husk 0.4 gram capsule 0.4 g PO DAILY 04/02/23 04/02/23 History (Daily Fiber) vit C 30 mg-s.watson 250 mg-celery 1 cap PO BID 04/02/23 04/02/23 History seed 75 mg-grape seed extrt capsule (Tart Watson) Exam Const General: cooperative, healthy appearing and not in acute distress Neck Neck: normal visual inspection, no lymphadenopathy and supple Thyroid: thyroid normal Resp Effort & Inspection: normal respiratory effort Auscultation: clear to auscultation bilaterally Cardio Jugular venous pressure: no JVD Rate: regular rate Rhythm: regular rhythm Heart Sounds: S1 normal and S2 normal Neuro General: patient alert, patient awake and patient oriented x3 Psych Appearance: grossly normal
--- NOTE | 2023-04-01 21:27 | ENDO_ITS ---
Date of service: 04/02/23 Time of Service: 11:22 Endoscopy Report DATE OF PROCEDURE: 04/02/23 PRE-OP DIAGNOSIS: Positive fecal occult blood POST-OP DIAGNOSIS: other (Normal EGD; 0.25 cm rectal polyp, 0.25 cm cecal polyp, 0.5 cm polyp at 80 cm, 0.5 cm polyp at 75 cm) PROCEDURE: EGD and colonoscopy SURGEON: Antolin Woody ANESTHESIA TYPE: General:No Airway ESTIMATED BLOOD LOSS: 10 PATHOLOGY: other (Random biopsies of gastric antrum and body, as well as four- quadrant biopsies of the GE junction; 0.25 cm rectal polyp, 0.25 cm cecal polyp, 0.5 cm polyp at 80 cm, 0.5 cm polyp at 75 cm) COMPLICATIONS: None DISPOSITION: same day INDICATIONS: He is 67 years old, and he underwent a colonoscopy just over 5 years ago. That test was normal. However, in the interim, he has developed fecal occult positive blood testing. His past medical history is also significant for bladder and prostate cancer. He underwent a trans urethral prostatectomy approximately 4 weeks ago. He has been doing well pretty well since then. He i s planning to start radiation in April. He is quite concerned about the fecal occult blood test because he had a brother who of gastric cancer in his 50s. PREP: Miralax/Dulcolax PROCEDURE START TIME: 10:21 PROCEDURE END TIME: 10:56 COLONOSCOPY RETRACTION TIME: 11 FINDINGS: Hemorrhoids, sparse diverticulosis; 0.25 cm rectal polyp, 0.25 cm cecal polyp, 0.5 cm polyp at 80 cm, 0.5 cm polyp at 75 cm PROCEDURE DESCRIPTION: After the initiation of monitored anesthetic care, and with the assistance of a bite block, I advanced a standard gastroscope through the mouth past the hypopharynx and into the esophagus.? Under the direct vision of the scope, I advanced down the esophagus into the stomach.? Once I entered the stomach, I performed a brief inspection, followed by retroflexion towards the gastric cardia.? This appeared normal.? After that, I gently advanced the scope around the incisura angularis and examined the pylorus.? This also appeared normal.? Next, I advanced the scope through the pylorus into the duodenum.? The mucosa was pink and healthy appearing.? There were no abnormalities.? I was able to visualize bile draining into the duodenum through the ampulla Vater. ?I brought the camera back into the stomach and carefully examined all of the mucosa 1 more time. Again, there is no gross pathology. I did perform some random biopsies of the gastric antrum and body in an effort to identify any potential source of his positive Hemoccult test. I then brought the camera back to the GE junction. It was measured at 40 cm from the incisors. There was really minimal variation of the Z-line. I did perform four-quadrant biopsies here given the patient's family history of esophageal cancer. Next, I advanced back into the stomach and emptied it, and withdrew along the length of the esophagus carefully examining it along its entirety. I did not see any pathology Next, we moved Lowell into the left lateral decubitus position. I began by performing an external anorectal exam.? Perineum and skin were normal, as was the anal verge.? There were some external hemorrhoids next, I performed a digital rectal exam.? I did not appreciate any abnormal findings.? Next, I advanced a colonoscope into the rectal vault.? I performed retroflexion.? There are grade 1 internal hemorrhoids.? Using insufflation, I then advanced the colonoscope beyond the rectal folds and into the sigmoid colon before advancing towards the cecum.? There were some occasional sigmoid diverticula.? The scope was noted to be in the cecum by identification of the ileocecal valve and appendiceal orifice.? Just within the cecum is a 0.25 cm flat polyp. I removed this with cold forceps. There was minimal bleeding. Similarly, I found polyps at 80 cm and 75 cm from the anus. Both of these polyps were 0.5 cm. Both were flat. I removed both of these polyps with cold forceps without any issue as well. I then began withdrawing the colonoscope using repeated irrigation as necessary for full evaluation of the colonic mucosa. ?Once the scope was withdrawn to the level of the rectum, great care was taken to examine portions of the rectal folds.? At the upper portion of the rectal vault was a 0.25 cm flat polyp. I also removed this with cold forceps without any problems. Finally, the scope was withdrawn and the patient was brought to the same-day surgery recovery unit as the anesthetic wore off. ?The findings and instructions were shared with the patient prior to discharge. The Holland bowel prep score from right to left was 3, 3, 3.
[2023-04-02 09:09] VITALS: BP 133/101; PULSE 67; RESP 18; TEMP 36.6; O2SAT 99
[2023-04-02] MEDS: Lactated Ringers 1,000 ML 80 ML IV (09:30)
--- NOTE | 2023-04-02 09:57 | W.ANESPRE ---
General Info Date of Service Date Performed: 04/02/23 Height: 5 ft 10 in Weight: 87.9 kg Body Mass Index (BMI): 27.8 Surgical Procedure: Operation Date: 04/02/23 09:50 Proposed Procedure Side Surgeon p Colonoscopy/Gastroscopy Antolni Woody MD Meds Allergies and Home Medications Allergies Allergy/AdvReac Type Severity Reaction Status Date / Time No Known Allergies Allergy Verified 04/02/23 09:02 Home Medication Medication Instructions Recorded varicella-zoster glycoE vacc-AS01B 50 mcg IM ONCE #1 ea 02/04/18 adj(PF) 50 mcg/0.5 mL IM susp, kit (Shingrix (PF)) diphenhydramine 25 2 tab PO .nightly PRN 02/24/22 mg-acetaminophen 500 mg tablet (Tylenol PM Extra Strength) losartan 25 mg tablet 25 mg PO DAILY 05/06/22 docusate sodium 50 mg/5 mL oral 50 mg PO DAILY 02/01/23 liquid therapeutic multivitamin 1 tab PO QAM 02/01/23 sildenafil 100 mg tablet (Viagra) 100 mg PO DAILY PRN sexual 03/01/23 activity #10 tab-caps psyllium husk 0.4 gram capsule 0.4 g PO DAILY 04/02/23 (Daily Fiber) vit C 30 mg-s.watson 250 mg-celery 1 cap PO BID 04/02/23 seed 75 mg-grape seed extrt capsule (Tart Watson) Current Visit Medications: Current Medications Generic Name Dose Route Start Last Admin Trade Name Freq PRN Reason Stop Dose Admin Hyoscyamine Sulfate 0.125 mg 04/01/23 21:27 Hyoscyamine 0.125 Mg Sl/Oral/Chew SL 05/01/23 21:26 DIRECTED PRN Ringer's Solution 1,000 mls @ 80 mls/hr 04/02/23 06:00 04/02/23 09:30 IV 05/01/23 23:59 80 mls/hr INFUSION ZEYNEP Administration IV Miscellaneous Supplies 1 each 04/02/23 06:00 Iv Access IV 05/01/23 23:59 DIRECTED ZEYNEP Ondansetron HCl 4 mg 04/01/23 21:27 Ondansetron 4 Mg/2 Ml Vial IVP 05/01/23 21:26 Q4H PRN PRN Nausea / Vomiting Sodium Chloride 0 ml 04/02/23 06:00 Normal Saline Flush 10 Ml Syr IV 05/01/23 23:59 PRN PRN Sodium Chloride 0 ml 04/02/23 06:00 Normal Saline 10 Ml Vial IJ 05/01/23 23:59 DIRECTED PRN Sterile Water 0 ml 04/02/23 06:00 Water,Injection,Sterile 10 Ml Vial IJ 05/01/23 23:59 DIRECTED PRN PFSH Active Problems Active Problems: Problem Status Onset Code Occult blood positive stool R19.5 Prostate cancer ~11/2022 C61 Urinary retention R33.9 EIC (epidermal inclusion cyst) ~06/11/22 L72.0 Trochanteric bursitis of right hip ~05/12/22 M70.61 Aneurysm ~04/2022 I72.9 Malignant neoplasm of overlapping sites of bladder C67.8 Incomplete bladder emptying R33.9 Osteoarthritis of right hip M16.11 Urothelial carcinoma of bladder C67.9 Acute blood loss as cause of postoperative anemia D62 Elevated PSA R97.20 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 D59.6 Impotence, organic 05/31/12 N52.9 Hyperlipidemia 02/10/98 E78.5 Gastroesophageal reflux disease 09/04/12 K21.9 Benign neoplasm of colon 09/14/12 D12.6 Medical History Medical History Ascending aortic aneurysm (05/13/15) Male erectile disorder Surgical History Surgical History EGD - MAC (09/14/12) Colonoscopy - MAC (11/09/17) repeated 09/14/12 tubular adenoma Colonoscopy - MAC (~2007) repeated 09/14/12 tubular adenoma Tobacco Smoking/Tobacco Use Status: Never Alcohol Alcohol Intake: former Year quit: 2006 Substance Use Substance use: Never Substance use type: does not use Vital Signs and Lab Results Vital Signs Most Recent Vital Signs in EMR: Most Recent Vital Signs Temp Pulse Resp BP Pulse Ox 36.6 C 67 18 133/101 H 99 04/02/23 09:09 04/02/23 09:09 04/02/23 09:09 04/02/23 09:09 04/02/23 09:09 Lab Results Blood Type / Crossmatch: No Data to Display Complete Blood Count: No Data to Display Complete Metabolic Panel: No Data to Display Liver Function Panel: No Data to Display Coagulation Panel: No Data to Display Cardiac Panel: No Data to Display Arterial Blood Gas: No Data to Display Venous Blood Gas: No Data to Display Pancreas Panel: No Data to Display Thyroid Panel: No Data to Display Infectious Disease: No Data to Display Blood Cultures: No Data to Display Toxicology Panel: No Data to Display Anesthesia Assessment and Plan Anesthesia History Personal History: No History of Anesthesia Complications Family History: No Family History of Anesthesia Complications Exercise Tolerance Exercise Tolerance: Metabolic Equivalents>4 Pertinent Negatives Pertinent Negatives: No Symptoms of GERD, No Major Cardiovascular Symptoms or Complaints and No Major Pulmonary Symptoms or Complaints Cardiac & Pulmonary Exam Cardiac Exam: Normal S1/S2 Heart Sounds Pulmonary Exam: Clear Bilateral Breath Sounds Implantable Cardiac Device Does patient have a Pacemaker or an ICD?: No Airway Exam Known Difficult Airway: No Mallampati Class: 2 Mouth Opening: Normal (> 3cm) Thyromental Distance: Greater than 3 cm Neck Range of Motion: Full ROM Neck Circumference: Normal Teeth Condition: Normal Dentition, Removable Dentures/Plates Upper, Removable Dentures/Plates Lower and Edentulous ASA Classification ASA Score: ASA 3 Emergency Case?: No NPO Status NPO Status: NPO Clears >2 hours, Solids >8 hours Anesthesia Plan Resuscitation Status: Full Code Anesthesia Technique: General Anesthesia Airway Planned: Natural Airway Monitors Used: Standard Monitors
[2023-04-02 09:59] VITALS: BMI 27.8
--- NOTE | 2023-04-02 10:23 | BOWEL_PTH ---
PATIENT: Raphael Elena LOC: [facility] U#:[id number] AGE/SX: 67/M ROOM: RE04/02/[address]: Antolin Woody MD : [id number] BED: DIS: 04/02/2023 SPEC #: [id number] RECD: 04/02/23 12:39 STATUS: SHIRLEY REQ #: [id number] SERGIO: 04/02/23 10:[address]: Antolin Woody DEPT: Surgical Specimen RECD BY: Ni Stout ENTERED: 04/02/23 12:43 SP TYPE: Bowel OTHR DR: David Venegas DO Tissues: 1 - STOMACH BIOPSY 2 - STOMACH BIOPSY 3 - ESOPHAGUS BIOPSY 4 - BIOPSY BOWEL 5 - BIOPSY BOWEL 6 - BIOPSY BOWEL 7 - BIOPSY BOWEL Procedures: GROSS AND MICRO LEVEL 4 Comments: [id number]
[2023-04-02 11:04] VITALS: BP 124/91; PULSE 55; RESP 16; TEMP 36.6; O2SAT 97
--- NOTE | 2023-04-02 11:53 | W.ANESPOSTOP ---
Postoperative Evaluation Date, Time and Location Date Performed: 04/02/23 Time Performed: 11:15 Patient Location: Day Surgery Unit Vital Signs Most Recent Imported Vital Signs: Most Recent Vital Signs Temp Pulse Resp BP Pulse Ox 36.6 C 55 L 16 124/91 H 97 04/02/23 11:04 04/02/23 11:04 04/02/23 11:04 04/02/23 11:04 04/02/23 11:04 Pain Score Most Recent Pain Score: Most Recent Pain Score Pain Level 0 04/02/23 11:04 Assessment Mental Status: Awake (Alert & Oriented to Patient Baseline) Airway and Respiratory Function: Patent airway with normal (patient baseline) respiratory exam Cardiovascular Function: Hemodynamically Stable Hydration Status: Adequately Hydrated Nausea & Vomiting: No Nausea or Vomiting Pain: Pt. Denies Any Pain Peripheral Nerve Block: Patient did not receive a nerve block
[2023-04-02 11:55] VITALS: BP 139/95; PULSE 58; RESP 16; TEMP 36.5; O2SAT 96
== END 2023-04-02 08:36 | disposition home or self-care (01) ==
LOC: SUR 08:35
PROVIDERS: PCP Family Medicine; Visit Provider Surgery
PROC: (CPT 45380; principal; 2023-04-02 09:45)
DX: R19.5 Other fecal abnormalities (principal); D12.0 Benign neoplasm of cecum; K64.0 First degree hemorrhoids; K57.30 Diverticulosis of large intestine without perforation or abscess without bleeding; K21.9 Gastro-esophageal reflux disease without esophagitis; K22.89 Other specified disease of esophagus; D12.4 Benign neoplasm of descending colon
CPT/HCPCS: 45380; 43239; 88305; J2704

== ENCOUNTER 2023-05-16 12:00 | Emergency (ER) | payer MEDICARE, SELFPAY ==
--- NOTE | 2023-05-16 12:00 | DI.RAD_ITS ---
Exam(s) XR RIBS LT PA CHEST 3V EXAM: XR RIBS LT PA CHEST 3V CLINICAL HISTORY: left rib pain TECHNIQUE: 2D digital imaging was performed. Six images are obtained. COMPARISON: CR,XR XR PORTABLE CHEST AP from 11/17/2022 FINDINGS: MEDIASTINUM: Normal. HEART: Normal. PULMONARY VASCULATURE: Normal. LUNGS: Clear. PLEURAL SPACE: No pleural effusion or pneumothorax. BONE:Within normal limits for the patient's age. LEFT RIBS: Normal. OTHER FINDINGS:Normal. IMPRESSION: 1. No acute pulmonary findings. 2. Unremarkable left ribs. DATA REPOSITORY: RADIATION DOSE DELIVERED:
[2023-05-16 12:03] VITALS: BP 157/88; PULSE 60; RESP 18; TEMP 36.1; O2SAT 100
--- NOTE | 2023-05-16 12:49 | DI.VRAD_ITS ---
PROCEDURE INFORMATION: Exam: XR Left Ribs with PA Chest Exam date and time: 05/16/2023 12:34 PM Age: 68 years old Clinical indication: Patient HX: Left rib pain after fall, TECHNIQUE: Imaging protocol: Radiologic exam of the left ribs with PA chest. Views: 3 views COMPARISON: CR XR PORTABLE CHEST AP 11/17/2022 7:07 PM FINDINGS: Lungs: Unremarkable. No consolidation. Pleural spaces: Unremarkable. No pleural effusion. No pneumothorax. Heart/Mediastinum: Unremarkable. No cardiomegaly. Bones/joints: Unremarkable. IMPRESSION: No acute findings. Dictated and Authenticated by: Hernando Tavarez MD. Ordering:[facility] Tulio Orantes MD
[2023-05-16] MEDS: Lidocaine 5% Patch 1 PATCH TP (13:13)
--- NOTE | 2023-05-16 14:35 | ED.GENADUL_ITS ---
HPI General Date/Time Provider Initiated Documentation: 05/16/23 12:08 . Limitations to Documentation: no limitations . Information obtained by: patient . HPI Narrative: 68-year-old gentleman with past medical history of prostate cancer, currently on radiation therapy presents for evaluation of left-sided rib pain. Acute onset just prior to arrival while he was snowboarding. He says he was going to fast and fell and hit the left side of his chest. Reports pain worse with laughing, deep breath and movement. Did not hit his head, was wearing a helmet, no additional injuries during the fall. Related Data Home Medications Medication Instructions Recorded Confirmed varicella-zoster glycoE vacc-AS01B 50 mcg IM ONCE #1 ea 02/04/18 04/01/23 adj(PF) 50 mcg/0.5 mL IM susp, kit (Shingrix (PF)) diphenhydramine 25 2 tab PO .nightly PRN 02/24/22 05/16/23 mg-acetaminophen 500 mg tablet (Tylenol PM Extra Strength) losartan 25 mg tablet 25 mg PO DAILY 05/06/22 05/16/23 docusate sodium 50 mg/5 mL oral 50 mg PO DAILY 02/01/23 05/16/23 liquid therapeutic multivitamin 1 tab PO QAM 02/01/23 04/02/23 sildenafil 100 mg tablet (Viagra) 100 mg PO DAILY PRN sexual 03/01/23 05/16/23 activity #10 tab-caps psyllium husk 0.4 gram capsule 0.4 g PO DAILY 04/02/23 04/02/23 (Daily Fiber) vit C 30 mg-s.watson 250 mg-celery 1 cap PO BID 04/02/23 05/16/23 seed 75 mg-grape seed extrt capsule (Tart Wtason) metoprolol succinate 25 mg 25 mg PO DAILY Hypertension 04/27/23 05/16/23 tablet,extended release 24 hr leuprolide subcut 05/16/23 lidocaine 5 % topical patch 1 patch topical DAILY #15 ea 05/16/23 (Lidoderm) Previous Rx's Medication Instructions Recorded varicella-zoster glycoE vacc-AS01B 50 mcg IM ONCE #1 ea 02/04/18 adj(PF) 50 mcg/0.5 mL IM susp, kit (Shingrix (PF)) sildenafil 100 mg tablet (Viagra) 100 mg PO DAILY PRN sexual 03/01/23 activity #10 tab-caps lidocaine 5 % topical patch 1 patch topical DAILY #15 ea 05/16/23 (Lidoderm) Allergies Allergy/AdvReac Type Severity Reaction Status Date / Time No Known Allergies Allergy Verified 05/16/23 12:08 General Stated Complaint: Trauma LIDIA: 3 Exam Narrative Exam Narrative: Review of Systems: All systems reviewed & are unremarkable except as noted in HPI and below Well-developed, no acute distress NCAT PERRL, normal conjunctiva RRR Unlabored respiratory effort, clear breath sounds bilaterally No obvious chest wall deformity or contusion, no flail chest, there is some tenderness overall along the left lower lateral ribs Nondistended abdomen , nontender Extremities w/o deformity, no cyanosis, no edema No rashes or lesions. no focal neurologic deficits Appropriate mood and affect Course Vital Signs Vital signs: Vital Signs Temperature 36.1 C L 05/16/23 12:03 Pulse 60 05/16/23 12:03 Respiratory Rate 18 05/16/23 12:03 Blood Pressure 157/88 H 05/16/23 12:03 Pulse Oximetry 100 05/16/23 12:03 Temperature 36.1 C L 05/16/23 12:03 Pulse 60 05/16/23 12:03 Respiratory Rate 18 05/16/23 12:03 Respiratory Effort Normal 05/16/23 12:17 Respiratory Depth Normal 05/16/23 12:17 Respiratory Pattern Normal 05/16/23 12:17 Blood Pressure 157/88 H 05/16/23 12:03 Pulse Oximetry 100 05/16/23 12:03 Oxygen Delivery Method Room Air 05/16/23 12:03 Oxygen Flow Rate 0 05/16/23 12:03 Pain Level 0 05/16/23 12:17 Comment pain increased when inhale/cough 05/16/23 12:03 Medical Decision Making Emergent evaluation of left-sided rib pain after trauma. Initial differential includes contusion, rib fracture, pulmonary contusion. Patient has normal oxygenation, no respiratory distress. I do not feel that this is a cardiac etiology of chest pain. He did declines any pain medication. X-ray obtained, reviewed and independently interpreted by me, no fracture. Lidocaine patch applied to area of pain. Provided an incentive spirometer to use at home with instructions on how to do so. Return precautions advised. Recommend Motrin Tylenol as needed for pain. Medical Records Medical records reviewed: Yes I reviewed the patient's medical records. Quality:SDOH Health Related Social Needs: No Data to Display PFSH All Active Problems Contusion of rib (Acute) Tubular adenoma (Acute ~04/02/23) x3 Occult blood positive stool (Acute) Prostate cancer (Chronic ~11/2022) Urinary retention (Acute) EIC (epidermal inclusion cyst) (Acute ~06/11/22) Trochanteric bursitis of right hip (Acute ~05/12/22) Aneurysm (Acute ~04/2022) 05/01/22 Cardiology Malignant neoplasm of overlapping sites of bladder (Acute) Incomplete bladder emptying (Acute) Osteoarthritis of right hip (Acute) Urothelial carcinoma of bladder (Acute) Acute blood loss as cause of postoperative anemia (Acute) Elevated PSA (Acute) 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 Father , stroke Stroke Sister No problems noted. Sister No problems noted. Sister No problems noted. Sister No problems noted. Brother , stomach cancer at age 52. Personal history of malignant neoplasm stomach Brother No problems noted. Brother No problems noted. Brother No problems noted. Brother No problems noted. Brother No problems noted. Brother No problems noted. Brother No problems noted. Social History Smoking/Tobacco Use Status: Never Smoking risk assessment performed?: Yes Alcohol Intake: former Year quit: 2006 Drug use: Never Substance use type: does not use Household members: spouse and children Housing: house Number of Children: 4 current occupation: self employed What type of physical activity do you participate in: weight lifting, running and additional Details: work Frequency: 3-4 times per week Seatbelt use: always Helmet use: Yes Do you feel safe at home: Yes Do you feel safe in your relationship?: Yes Discharge Plan Disposition Patient Disposition: Home Discharge Details Clinical Impression: Contusion of rib Primary Care Provider: David Venegas ED Provider: Kiko Antunez Home Meds and New Rx's Prescriptions: New lidocaine [Lidoderm] 5 % adhesive patch,medicated 1 patch topical DAILY Qty: 15 0RF Rx Instructions: leave on most painful area for up to 12 hrs No Action diphenhydramine-acetaminophen [Tylenol PM Extra Strength] 25-500 mg tablet 2 tab PO .nightly PRN Shingrix (PF) 50 mcg/0.5 mL suspension for reconstitution 50 mcg IM ONCE Qty: 1 1RF losartan 25 mg tablet 25 mg PO DAILY docusate sodium 50 mg/5 mL liquid 50 mg PO DAILY therapeutic multivitamin Tablet 1 tab PO QAM sildenafil [Viagra] 100 mg tablet 100 mg PO DAILY PRN (Reason: sexual activity) Qty: 10 12RF Rx Instructions: as directed for ED metoprolol succinate 25 mg tablet extended release 24 hr 25 mg PO DAILY Hold Instructions: Pt Stopped/Never Started psyllium husk [Daily Fiber] 0.4 gram capsule 0.4 g PO DAILY Tart Watson [id number] mg capsule 1 cap PO BID leuprolide [Lupron] subcut Discharge Instructions Instructions: Rib Contusion (ED) Additional Instructions: use incentive spirometer every hour take motrin or tylenol as needed for pain apply lidoderm patch to area of most pain
== END 2023-05-16 13:14 | disposition home or self-care (01) ==
PROVIDERS: Emergency Provider Emergency Medicine; PCP Family Medicine
DX: S20.212A Contusion of left front wall of thorax, initial encounter (principal); C61 Malignant neoplasm of prostate; Z92.3 Personal history of irradiation; W00.0XXA Fall on same level due to ice and snow, initial encounter; Y93.23 Activity, snow (alpine) (downhill) skiing, snowboarding, sledding, tobogganing and snow tubing; Y92.838 Other recreation area as the place of occurrence of the external cause
CPT/HCPCS: 71101; 99283

== ENCOUNTER 2023-07-16 01:27 | Outpatient (CLI) | payer MEDICARE, SELFPAY ==
[2023-07-19 13:56] LABS: PSA, Ultrasensitive 0.16 ng/mL (<= 4.5)
[2023-07-20 10:58] LABS: Testosterone, Total 18 ng/dL (240-950)
== END 2023-07-16 01:28 | disposition home or self-care (01) ==
LOC: LBO 01:27
PROVIDERS: PCP Family Medicine; Visit Provider Radiology Radiation Oncology
DX: C61 Malignant neoplasm of prostate (principal)
CPT/HCPCS: 36415; 84153; 84403

== ENCOUNTER 2024-01-31 03:37 | Outpatient (CLI) | payer MEDICARE, SELFPAY ==
[2024-02-02 10:55] LABS: PSA, Ultrasensitive 0.24 ng/mL (<= 4.5)
[2024-02-03 11:52] LABS: Testosterone, Total 442 ng/dL (240-950)
== END 2024-01-31 03:38 | disposition home or self-care (01) ==
LOC: LBO 03:37
PROVIDERS: PCP Family Medicine; Visit Provider Radiology Radiation Oncology
DX: C61 Malignant neoplasm of prostate (principal)
CPT/HCPCS: 36415; 84153; 84403

== ENCOUNTER 2024-05-24 01:04 | Outpatient (CLI) | payer MEDICARE, SELFPAY ==
[2024-05-24 08:09] LABS: Folate 10.4 ng/mL (8.6-20.0)
[2024-05-24 08:20] LABS: ALT 26 U/L (16-63); AST 19 U/L (15-37); Albumin 3.8 g/dL (3.4-5.0); Alkaline Phosphatase 48 U/L (46-116); Anion Gap 5.6 mmol/L (3-11); BUN 10 mg/dL (7-18); CO2 30.4 mmol/L (21.0-32.0); CREATININE 1.1 mg/dL (0.70-1.30); Calcium 9.1 mg/dL (8.5-10.1); Chloride 104 mmol/L (98-107); Estimated GFR 73.58 (mL/min/1.73m2); Glucose 107 mg/dL (74-106); Sodium 140 mmol/L (136-145); TSH (W/Ref FT4) 1.83 uIU/mL (0.36-3.74); Total Protein 7.1 g/dL (6.4-8.2); Vitamin B12 635 pg/mL (193-986)
[2024-05-25 10:53] LABS: Syphilis Serology (RPR) Negative (Negative)
== END 2024-05-24 01:05 | disposition home or self-care (01) ==
LOC: LBO 01:04
PROVIDERS: PCP Family Medicine; Referring Provider Family Medicine; Visit Provider Family Medicine
DX: R41.3 Other amnesia (principal); Z13.6 Encounter for screening for cardiovascular disorders
CPT/HCPCS: 36415; 80053; 82607; 82746; 83735; 84443; 86592

== ENCOUNTER 2024-07-21 14:48 | Outpatient (CLI) | payer MEDICARE, SELFPAY | END 2024-07-21 14:49 | disposition home or self-care (01) | LOC: LBO 14:48 | PROVIDERS: PCP Family Medicine; Visit Provider Radiology Radiation Oncology | DX: C61 Malignant neoplasm of prostate (principal) | CPT/HCPCS: 36415; 84153 ==

== ENCOUNTER 2025-02-16 17:27 | Outpatient (CLI) | payer MEDICARE, SELFPAY | END 2025-02-16 17:28 | disposition home or self-care (01) | LOC: LBO 17:28 | PROVIDERS: PCP Family Medicine; Visit Provider Physician Assistant | DX: C61 Malignant neoplasm of prostate (principal) | CPT/HCPCS: 36415; 84153; 84403 ==

== ENCOUNTER 2025-04-08 13:45 | Emergency (ER) | payer MEDICARE, SELFPAY ==
[2025-04-08 13:52] VITALS: BP 134/89; PULSE 91; RESP 14; TEMP 37.1; O2SAT 96
--- NOTE | 2025-04-08 14:00 | DI.RAD_ITS ---
Exam(s) XR SHOULDER RT COMPLETE 2+V XR CLAVICLE RT EXAM: XR SHOULDER RT COMPLETE 2+V and XR clavicle RT CLINICAL HISTORY: fall. TECHNIQUE: 2D digital imaging was performed of the right clavicle and shoulder. Six images were obtained. AP, Grashey, Y-view, axial and axillary views were obtained. COMPARISON: There are no priors for comparison. FINDINGS: BONES: There is an acute fracture of the distal clavicle just before the acromioclavicular joint. The fracture is moderately displaced and comminuted. The distal fracture fragment is superiorly located relative to the medial fracture component. No bony destructive lesion is seen. JOINTS: No dislocation present. The glenohumeral joint is intact. The acromioclavicular joint is intact. SOFT TISSUE: Normal. IMPRESSION: 1. Comminuted displaced distal right clavicular fracture. 2. The preliminary [facility] report was reviewed. DATA REPOSITORY: RADIATION DOSE DELIVERED:
--- NOTE | 2025-04-08 15:27 | W.ED.GENAD ---
Discharge Plan Disposition Patient Disposition: Home Discharge Details Clinical Impression: Closed fracture of right clavicle Primary Care Provider: David Venegas ED Provider: Andrea Orr Home Meds and New Rx's Prescriptions: New acetaminophen [Tylenol] 325 mg tablet 975 mg PO ONCE PRNQty: 60 0RF ibuprofen 600 mg tablet 600 mg PO Q6H PRNQty: 30 0RF oxycodone 5 mg tablet 5 mg PO Q8H PRNQty: 10 0RF No Action diphenhydramine-acetaminophen [Tylenol PM Extra Strength] 25-500 mg tablet 2 tab PO .nightly PRN fluticasone propionate 50 mcg/actuation spray,suspension 1 spray intranasal DAILY Rx Instructions: administer into each nostril mecobalamin (vitamin B12) 1,000 mcg tablet,chewable 1,000 mcg PO DAILY Shingrix (PF) 50 mcg/0.5 mL suspension for reconstitution 50 mcg IM ONCE Qty: 1 1RF sildenafil [Viagra] 100 mg tablet 100 mg PO DAILY PRN (Reason: sexual activity) Qty: 10 12RF Rx Instructions: as directed for ED doxycycline monohydrate 100 mg tablet 100 mg PO DAILY losartan 25 mg tablet 25 mg PO DAILY docusate sodium 50 mg/5 mL liquid 50 mg PO DAILY metoprolol succinate 25 mg tablet extended release 24 hr 25 mg PO DAILY losartan 50 mg tablet 50 mg PO DAILY psyllium husk [Daily Fiber] 0.4 gram capsule 0.4 g PO DAILY Tart Watson [id number] mg capsule 1 cap PO BID Discharge Instructions Instructions: [facility] ED Additional Instructions: Please follow-up with the orthopedics clinics which you have been referred to today. They will be calling you to make a scheduled appointment. Please return to the emergency department if you develop any significant symptoms such as worsening or severe pain, difficulty breathing or any other new or concerning symptoms. Your x-ray today was read by myself, a virtual radiologist, will sometimes read the x-ray today. If they disagree with my read, find other abnormalities, you will be contacted by phone to discuss further plans of care. Stand Alone Forms: Portal Information, Work Release Referrals: Brigido Vale MD [ [facility] STAFF PHYSICIAN, Orthopaedic Surgical] Discharge Data Discharge Date/Time-TO BE ENTERED AT DEPARTURE: 04/08/25 16:15 HPI General Date/Time Provider Initiated Documentation: 04/08/25 14:03. HPI Narrative: MDM/Narrative: 70-year-old male presents for evaluation of right shoulder injury status post fall while skiing. Vital signs normal limits. Physical exam shows no tenting of skin over the right shoulder, however there is swelling with point tenderness. X-ray shows a distal right clavicular fracture. Patient remains neurovascularly intact in the right upper extremity. Will provide sling and referral to orthopedics. Disposition: Home HPI: 70-year-old male presents for evaluation of injury sustained when he fell while skiing. Patient states that he relying on his right shoulder causing pain and swelling to the area he took ibuprofen for arrival without significant improvement. He notes swelling to the area denies any other injuries. ROS: Negative besides as mentioned above Exam: Gen: A&O NAD HEENT: NCAT, EOMI, not icteric. External ears normal. No rhinorrhea. Moist mucous membranes. Neck: Supple, full range of motion, no observable masses, No meningeal sign. Lungs: No Respiratory distress. CV: RRR, no edema. Abdomen: Soft, nondistended, No rebound tenderness. MSK: There is swelling of the distal right clavicle without skin tenting. Radial pulses 2+ bilaterally, sensation intact in the right hand, cap refills less than 2 seconds in all digits of the right hand. Skin: No rashes, petechiae, lesions. Normal color per patient. Neuro: Normal Gait, Grossly intact. Psych: Appropriate for situation. Radiology: Accession No. : [id number] Creator : TERRI RUIZ Dictator : TERRI RUIZ Broaching Machine Operator : Tool And Die Repairer : TERRI RUIZ Approver2 : Report Date : 04/08/2025 16:12:12 Exam(s) XR SHOULDER RT COMPLETE 2+V XR CLAVICLE RT EXAM: XR SHOULDER RT COMPLETE 2+V and XR clavicle RT CLINICAL HISTORY: fall. TECHNIQUE: 2D digital imaging was performed of the right clavicle and shoulder. Six images were obtained. AP, Grashey, Y-view, axial and axillary views were obtained. COMPARISON: There are no priors for comparison. FINDINGS: BONES: There is an acute fracture of the distal clavicle just before the acromioclavicular joint. The fracture is moderately displaced and comminuted. The distal fracture fragment is superiorly located relative to the medial fracture component. No bony destructive lesion is seen. JOINTS: No dislocation present. The glenohumeral joint is intact. The acromioclavicular joint is intact. SOFT TISSUE: Normal. IMPRESSION: 1. Comminuted displaced distal right clavicular fracture. 2. The preliminary [facility] report was reviewed. DATA REPOSITORY: RADIATION DOSE DELIVERED: Related Data Home Medications ?Medication ?Instructions ?Recorded ?Confirmed varicella-zoster glycoE vacc-AS01B 50 mcg IM ONCE #1 ea 02/04/18 02/02/25 adj(PF) 50 mcg/0.5 mL IM susp, kit (Shingrix (PF)) diphenhydramine 25 2 tab PO .nightly PRN 02/24/22 02/02/25 mg-acetaminophen 500 mg tablet (Tylenol PM Extra Strength) losartan 25 mg tablet 25 mg PO DAILY 05/06/22 02/02/25 Held on 09/22/24. Instructions: 09/06/24 dose increased by Cardiology docusate sodium 50 mg/5 mL oral 50 mg PO DAILY 02/01/23 02/02/25 liquid psyllium husk 0.4 gram capsule 0.4 g PO DAILY 04/02/23 02/02/25 (Daily Fiber) vit C 30 mg-s.watson 250 mg-celery 1 cap PO BID 04/02/23 02/02/25 seed 75 mg-grape seed extrt capsule (Tart Watson) metoprolol succinate 25 mg 25 mg PO DAILY Hypertension 04/27/23 02/02/25 tablet,extended release 24 hr Held on 05/16/23. Instructions: Pt Stopped/Never Started fluticasone propionate 50 1 spray intranasal DAILY 05/18/24 02/02/25 mcg/actuation nasal spray,suspension mecobalamin (vitamin B12) 1,000 1,000 mcg PO DAILY 05/18/24 02/02/25 mcg chewable tablet losartan 50 mg tablet 50 mg PO DAILY 09/22/24 02/02/25 doxycycline monohydrate 100 mg 100 mg PO DAILY 02/02/25 02/02/25 tablet sildenafil 100 mg tablet (Viagra) 100 mg PO DAILY PRN sexual 02/02/25 02/02/25 activity #10 tab-caps acetaminophen 325 mg tablet 975 mg (3 x 325 mg) PO ONCE PRN 04/08/25 (Tylenol) #60 tabs ibuprofen 600 mg tablet 600 mg PO Q6H PRN #30 tabs 04/08/25 oxycodone 5 mg tablet 5 mg PO Q8H PRN #10 tabs 04/08/25 Previous Rx's ?Medication ?Instructions ?Recorded varicella-zoster glycoE vacc-AS01B 50 mcg IM ONCE #1 ea 02/04/18 adj(PF) 50 mcg/0.5 mL IM susp, kit (Shingrix (PF)) sildenafil 100 mg tablet (Viagra) 100 mg PO DAILY PRN sexual 02/02/25 activity #10 tab-caps acetaminophen 325 mg tablet 975 mg (3 x 325 mg) PO ONCE PRN 04/08/25 (Tylenol) #60 tabs ibuprofen 600 mg tablet 600 mg PO Q6H PRN #30 tabs 04/08/25 oxycodone 5 mg tablet 5 mg PO Q8H PRN #10 tabs 04/08/25 Allergies Allergy/AdvReac Type Severity Reaction Status Date / Time No Known Allergies Allergy Verified 04/08/25 13:58 General Stated Complaint: Orthopedic LIDIA: 4 Course Vital Signs Vital signs: Vital Signs Temperature 37.1 C 04/08/25 13:52 Pulse 91 H 04/08/25 13:52 Respiratory Rate 14 04/08/25 13:52 Blood Pressure 134/89 04/08/25 13:52 Pulse Oximetry 96 04/08/25 13:52 Temperature 37.1 C 04/08/25 13:52 Temperature Source Temporal Artery Scan 04/08/25 13:52 Pulse 91 H 04/08/25 13:52 Respiratory Rate 14 04/08/25 13:52 Blood Pressure 134/89 04/08/25 13:52 Blood Pressure Position Sitting 04/08/25 13:52 Pulse Oximetry 96 04/08/25 13:52 Oxygen Delivery Method Room Air 04/08/25 13:52 Oxygen Flow Rate 0 04/08/25 13:52 Pain Level 3 04/08/25 13:52 PFSH All Active Problems (Updated 04/08/25 @ 15:29 by Andrea Orr MD) Closed fracture of right clavicle (Acute) Problems related to gambling and betting (Acute) Hypertension (Chronic ~08/2024) 09/06/24 Cardiology Nocturnal leg cramps (Acute) Memory problem (Acute) Tubular adenoma (Acute ~04/02/23) x3 Occult blood positive stool (Acute) Prostate cancer (Chronic ~11/2022) 05/13/23 Radiotherapy Urinary retention (Acute) EIC (epidermal inclusion cyst) (Acute ~06/11/22) Trochanteric bursitis of right hip (Acute ~05/12/22) Aneurysm (Acute ~04/2022) 05/01/22 Cardiology 09/06/24 Cardiology Malignant neoplasm of overlapping sites of bladder (Acute) Incomplete bladder emptying (Acute) Osteoarthritis of right hip (Acute) Urothelial carcinoma of bladder (Acute) Acute blood loss as cause of postoperative anemia (Acute) Elevated PSA (Acute) 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 Father , stroke Stroke Sister No problems noted. Sister No problems noted. Sister No problems noted. Sister No problems noted. Brother , stomach cancer at age 52. Personal history of malignant neoplasm stomach Brother No problems noted. Brother No problems noted. Brother No problems noted. Brother No problems noted. Brother No problems noted. Brother No problems noted. Brother No problems noted. Social History Smoking/Tobacco Use Status: Never Smoking risk assessment performed?: Yes Alcohol Intake: former Year quit: 2006 Drug use: Never Substance use type: does not use Household members: spouse and children Housing: house Number of Children: 4 current occupation: self employed What type of physical activity do you participate in: weight lifting, running and additional Details: work Frequency: 3-4 times per week Seatbelt use: always Helmet use: Yes Do you feel safe at home: Yes Do you feel safe in your relationship?: Yes
--- NOTE | 2025-04-08 15:34 | DI.[facility]_ITS ---
Addendum created by Pina Malik MD on 04/08/2025 3:39:13 PM EST: Correlation with clavicular exam reveals of the AC joint appears grossly intact. Initial report created on 04/08/2025 3:33:31 PM EST: PROCEDURE INFORMATION: Exam: XR Right Shoulder Exam date and time: 04/08/2025 2:52 PM Age: 70 years old Clinical indication: Other: Fall TECHNIQUE: Imaging protocol: Radiologic exam of the right shoulder. Views: 2 or more views. COMPARISON: CR XR PORTABLE CHEST AP 11/17/2022 7:07 PM FINDINGS: Bones/joints: There is a right-sided distal clavicular fracture with some superior elevation of the distal fragment. There may be AC joint involvement as well. Soft tissues: Normal. IMPRESSION: Distal clavicular fracture with possible AC joint involvement. Dictated and Authenticated by: Pina Malik MD. Orderin Kirby Mendez MD
--- NOTE | 2025-04-08 15:38 | DI.[facility]_ITS ---
PROCEDURE INFORMATION: Exam: XR Right Clavicle, Complete Exam date and time: 04/08/2025 3:00 PM Age: 70 years old Clinical indication: Injury or trauma; Other: Fall snowboarding; Fracture, traumatic injury; Closed fracture; Clavicle; Right TECHNIQUE: Imaging protocol: Radiologic exam of the right clavicle. Complete exam. Views: Any number of views. COMPARISON: CR XR SHOULDER RT COMPLETE 2+V 04/08/2025 2:52 PM FINDINGS: Bones/joints: There is a distal right clavicular fracture. The distal fragment is angled superiorly. On these images the AC joint appears intact. Soft tissues: Normal. IMPRESSION: Distal clavicular fracture. There is superior angulation of the distal fragment. Grossly the AC joint appears intact. Dictated and Authenticated by: Pina Malik MD. Orderin Kirby Mendez MD
--- NOTE | 2025-04-11 11:35 | NUR.NOTE ---
Access chart to get the discharge diagnosis for [facility] billing requisition. Nursing Note:
== END 2025-04-08 16:15 | disposition home or self-care (01) ==
PROVIDERS: Emergency Provider General Practice; PCP Family Medicine
DX: S42.031A Displaced fracture of lateral end of right clavicle, initial encounter for closed fracture (principal); Y93.23 Activity, snow (alpine) (downhill) skiing, snowboarding, sledding, tobogganing and snow tubing
CPT/HCPCS: 99284 ×2; 73000; 73030

== ENCOUNTER 2025-04-18 10:29 | Outpatient (CLI) | payer MEDICARE, SELFPAY ==
--- NOTE | 2025-04-18 09:14 | DI.RAD_ITS ---
Exam(s) XR CLAVICLE RT EXAM: XR CLAVICLE RT CLINICAL HISTORY: F/U FRACTURE TECHNIQUE: 2D digital imaging was performed. Two views COMPARISON: CR,XR XR CLAVICLE RT from 04/08/2025 FINDINGS: BONES: Stable alignment of comminuted distal clavicle fracture. No bony destructive lesion is seen. JOINTS: No dislocation present. Degenerative changes are present at the AC joint and glenohumeral joint. SOFT TISSUE: Normal IMPRESSION: Stable alignment of distal clavicle fracture. DATA REPOSITORY: RADIATION DOSE DELIVERED:
== END 2025-04-18 10:30 | disposition home or self-care (01) ==
LOC: DIORS 10:34
PROVIDERS: PCP Family Medicine; Referring Provider Family Medicine; Visit Provider Physician Assistant
DX: S42.001A Fracture of unspecified part of right clavicle, initial encounter for closed fracture (principal); V00.311A Fall from snowboard, initial encounter; Y93.23 Activity, snow (alpine) (downhill) skiing, snowboarding, sledding, tobogganing and snow tubing; I10 Essential (primary) hypertension
CPT/HCPCS: 99213; 73000